=== PATIENT | female | born 1965 | race Caucasian/White ===

== ENCOUNTER → 2017-08-10 13:28 | Outpatient (CLI) | payer OTHER, SELFPAY | PROVIDERS: Family Provider Family Medicine; PCP Family Medicine; Visit Provider Family Medicine | DX: R10.9 Unspecified abdominal pain (principal) ==

== ENCOUNTER → 2017-08-25 15:45 | Outpatient (CLI) | payer OTHER, SELFPAY | PROVIDERS: Family Provider Family Medicine; PCP Family Medicine; Visit Provider Family Medicine | DX: R10.9 Unspecified abdominal pain (principal) | CPT/HCPCS: 87077; 87086; 87088; 87186 ==

== ENCOUNTER → 2018-04-16 13:21 | Outpatient (CLI) | payer OTHER, SELFPAY ==
[2018-04-16 15:23] LABS: Absolute Lymphocyte Count 2.59 X10^3/ul (0.83-4.51); Absolute Neutrophil Count 4.7 X10^3/uL (2.0-7.7); Basophil# 0.04 X10^3/uL; Basophil% 0.5 % (0-1); Eosinophil# 0.21 X10^3/uL; Eosinophils% 2.5 % (0-5); Hemoglobin 14.2 g/dl (12.0-15.0); Lymphocyte # 2.59 X10^3/ul (4.0); Lymphocyte % 31.3 % (19-41); Mean Corpuscular Hgb 29.2 pg (27.0-32.0); Mean Corpuscular Volume 88.5 fL (81-99); Mean Platelet Vol. 10.6 fl (6.2-12.0); Monocyte# 0.73 X10^3/uL; Monocyte% 8.8 % (0-10); Neutrophil # 4.68 X10^3/uL (2.7-7.7); Neutrophil % 56.7 % (47-70); Platelet Count 263 K/mm3 (150-450); RBC Distribution Width CV 12.6 % (11.6-14.6); RBC Distribution Width SD 40.3 fl (35.1-43.9); Red Blood Count 4.86 M/mm3 (4.2-5.4); White Blood Count 8.3 K/mm3 (4.4-11.0)
[2018-04-16 15:37] LABS: AST(SGOT) 13 U/L (15-37); Alanine Aminotransfer ALT/SGPT 20 U/L (13-56); Albumin, Serum 3.8 g/dL (3.2-5.0); Alkaline Phosphatase 66 U/L (45-117); Anion Gap 9 (5-15); BUN 15 mg/dL (7-18); BUN/Creat Ratio 18.6 RATIO (10-20); Chloride 106 mmol/L (98-107); Cholesterol 216 mg/dL (200); Creatinine, Serum 0.81 mg/dL (0.55-1.02); EST Glomerular Filtration Rate 79 mL/min (>60); Est Glom Filt Rate - Afr Amer 96 mL/min (>60); Globulin 3.9 g/dL (2.2-4.2); Glucose 86 mg/dL (74-106); High Density Lipoprotein 59 mg/dL; Potassium 3.9 mmol/L (3.5-5.1); Protein, Total 7.7 g/dL (6.4-8.2); Sodium Level 141 mmol/L (136-145); T4 Free Direct 1.05 ng/dL (0.76-1.46); Thyroid Stim Hormone (TSH) 2.17 uIU/mL (0.358-3.74); Triglycerides 103 mg/dL; Very Low Density Lipoprotein 21 mg/dL (5-40)
[2018-04-16 15:44] LABS: POSITIVE COUNT NO; POSITIVE DIFFERENTIAL NO; POSITIVE MORPHOLOGY NO
== END ==
PROVIDERS: Visit Provider Family Medicine
DX: Z00.00 Encounter for general adult medical examination without abnormal findings (principal); N95.1 Menopausal and female climacteric states; F41.9 Anxiety disorder, unspecified; R00.2 Palpitations
CPT/HCPCS: 36415; 80053; 80061; 84439; 84443; 85025

== ENCOUNTER → 2018-09-21 12:04 | Outpatient (CLI) | payer OTHER, SELFPAY ==
[2018-09-21 15:48] LABS: Absolute Lymphocyte Count 2.14 X10^3/ul (0.83-4.51); Absolute Neutrophil Count 4.3 X10^3/uL (2.0-7.7); Basophil# 0.04 X10^3/uL; Basophil% 0.6 % (0-1); Eosinophil# 0.12 X10^3/uL; Eosinophils% 1.7 % (0-5); Hematocrit 44.1 % (37-47); Hemoglobin 14.9 g/dl (12.0-15.0); Lymphocyte # 2.14 X10^3/ul (4.0); Lymphocyte % 30.1 % (19-41); Mean Corp Hgb Conc 33.8 g/gl (32-36); Mean Corpuscular Hgb 29.2 pg (27.0-32.0); Mean Corpuscular Volume 86.5 fL (81-99); Mean Platelet Vol. 10.5 fl (6.2-12.0); Neutrophil # 4.29 X10^3/uL (2.7-7.7); Neutrophil % 60.5 % (47-70); POSITIVE COUNT NO; POSITIVE DIFFERENTIAL NO; POSITIVE MORPHOLOGY NO; Platelet Count 243 K/mm3 (150-450); RBC Distribution Width CV 12.7 % (11.6-14.6); RBC Distribution Width SD 40.6 fl (35.1-43.9); White Blood Count 7.1 K/mm3 (4.4-11.0)
[2018-09-21 15:51] LABS: ALB/GLOB Ratio 1.1 RATIO (0.9-2.4); AST(SGOT) 16 U/L (15-37); Alanine Aminotransfer ALT/SGPT 25 U/L (13-56); Albumin, Serum 3.8 g/dL (3.2-5.0); Alkaline Phosphatase 72 U/L (45-117); Anion Gap 6 (5-15); BUN 14 mg/dL (7-18); BUN/Creat Ratio 14.8 RATIO (10-20); CRP < 2.90 mg/L (0.0-3.0); Calcium,Total 8.7 mg/dL (8.5-10.1); Chloride 108 mmol/L (98-107); Creatinine, Serum 0.94 mg/dL (0.55-1.02); EST Glomerular Filtration Rate 66 mL/min (>60); Est Glom Filt Rate - Afr Amer 80 mL/min (>60); Globulin 3.6 g/dL (2.2-4.2); Glucose 94 mg/dL (74-106); Potassium 3.9 mmol/L (3.5-5.1); Protein, Total 7.4 g/dL (6.4-8.2); Sodium Level 141 mmol/L (136-145)
== END ==
PROVIDERS: Family Provider Family Medicine; PCP Family Medicine; Visit Provider Family Medicine
DX: R10.9 Unspecified abdominal pain (principal)
CPT/HCPCS: 36415; 80053; 85025; 86140

== ENCOUNTER → 2018-10-05 13:18 | Outpatient (CLI) | payer OTHER, SELFPAY | PROVIDERS: Family Provider Family Medicine; PCP Family Medicine; Visit Provider Family Medicine | DX: R10.9 Unspecified abdominal pain (principal) | CPT/HCPCS: 87086; 87088 ==

== ENCOUNTER → 2019-03-28 16:15 | Outpatient (CLI) | payer OTHER, SELFPAY ==
[2019-03-28 17:26] LABS: Erythrocyte Sedimentation Rate 9 mm/hr (0-30)
[2019-03-28 18:36] LABS: AST(SGOT) 11 U/L (15-37); Alanine Aminotransfer ALT/SGPT 19 U/L (13-56); Albumin, Serum 4.1 g/dL (3.2-5.0); Alkaline Phosphatase 81 U/L (45-117); Anion Gap 4 (5-15); BUN 12 mg/dL (7-18); BUN/Creat Ratio 13.3 RATIO (10-20); CRP < 2.90 mg/L (0.0-3.0); Calcium,Total 9.4 mg/dL (8.5-10.1); Chloride 107 mmol/L (98-107); EST Glomerular Filtration Rate 70 mL/min (>60); Est Glom Filt Rate - Afr Amer 84 mL/min (>60); Glucose 66 mg/dL (74-106); Magnesium 2.2 mg/dL (1.6-2.6); Potassium 3.6 mmol/L (3.5-5.1); Protein, Total 8.1 g/dL (6.4-8.2); Rheumatoid Factor < 10.0 IU/mL (<15); Sodium Level 140 mmol/L (136-145); Thyroid Stim Hormone (TSH) 2.76 uIU/mL (0.358-3.74)
--- OUTSIDE RECORDS SUMMARY | 2019-03-29 13:23 | XMS RPT_ITS | CCD ---
:1965 External Reference #:[id number] Author Organization [facility] Care Team Providers Name Role Phone Husam PARKINSON Unavailable Unavailable PHYSICIAN Unavailable Unavailable Husam PARKINSON Unavailable Unavailable MIRTA Unavailable Unavailable Husam DANIELS Admitting Unavailable Husam DANIELS Attending Unavailable Husam DANIELS Primary Care Unavailable Allergies Reported Allergen Reaction(s) Severity Date of Onset Location Codeine Moderate (Severity Margarito Pome leandro Modifier) [facility] ([facility] Penicillins Moderate (Severity Margarito [place] Modifier) [facility] ([facility]) [facility] Shellfish Moderate (Severity Margarito Pome leandro Translations: [ [facility] (Qual[facility] Value) Repository Results Result Name Value Range Unit Interpretation Flag Date Location history and physical on 2017-07-24 History and Physical Normal 8 [facility] ([id number]) discharge summary o n 2017-07-19 Discharge Summary Normal 07-19-2017 A [facility] ([id number]) inpatient patient summary on 2017-07-18 Inpatient Patient Summary Normal 06-27 [facility]) ([id number]) depart summary on Depart Summary Normal 07-18-2017 [facility]) ([id number]) cbc on 2017-07-18 Erythrocyte distribution 13.0 11.5-15.5 % Normal 07-18 [facility] Auto Ratio (RBC) [facility] ([id number]) Comment: Performed By: #### CBC, ADIF F, ANEU, BMP, GFR ####[facility] [place] [address] Erythrocytes (RBC) 4.75 4.10-5.30 10 6/mcL Normal 07-18-2017 [facility]) ([id number]) Comment: Performed By: #### CBC, ADIF F, ANEU, BMP, GFR ####[place] [address] Hematocrit (HCT) 40.9 34.0-46.0 % Normal 07-18-2017 [facility] ([place]) ([id number]) Comment: Performed By: #### CBC, ADIF F, ANEU, BMP, GFR ####[place] [address] Hemoglobin mass conc 14.4 12.0-16.0 G/dL Normal 8 [facility] (d) [facility] ([place]) ([id number]) Comment: Performed By: #### CBC, ADIF F, ANEU, BMP, GFR ####[place] [address] MCH 30.4 27.0-33.0 pg Normal 07-18-2017 [facility] ([place]) ([id number]) Comment: Performed By: #### CBC, ADIF F, ANEU, BMP, GFR ####[place] [address] MCHC mass conc (RBC) 35.3 32.0-36.0 G/dL Normal 8 [facility] ([place]) (0000 0) Comment: Performed By: #### CBC, ADIF F, ANEU, BMP, GFR ####[place] [address] MCV 86.1 80.0-99.0 fL Normal 07-18-2017 [facility] ([place]) ([id number]) Comment: Performed By: #### CBC, ADIF F, ANEU, BMP, GFR ####[place] [address] Platelet mean volume 8.6 6.6-10.5 fL Normal 8 [facility] ([facility]) ([place]) (0000 0) Comment: Performed By: #### CBC, ADIF F, ANEU, BMP, GFR ####[place] [address] Platelets 229 150-450 10 3/mcL Normal 07-18-2017 [facility]) ([id number]) Comment: Performed By: #### CBC, ADIF F, ANEU, BMP, GFR ####[place] [address] WBC (Leukocytes) 6.90 4.50-10.80 10 3/mcL Normal 07-18-2017 A On license of [facility] ([place]) (0000 0) Comment: Performed By: #### CBC, ADIF F, ANEU, BMP, GFR ####[place] [address] cardiac catheterization - cv on 2017-07-18 Cardiac Catheterization - CV Normal 0 07-18-2017 [facility]) ([id number]) bmp on 2017-07-18 BUN/Creatinine Ratio 16.5 10.0-22.0 ratio Normal 8 [facility]) (0000 0) Comment: Performed By: #### CBC, ADIF F, ANEU, BMP, GFR ####[place] [address] Creatinine 0.79 0.50-1.20 mg/dL Normal 07-18-2017 [facility] ([place]) ([id number]) Comment: Performed By: #### CBC, ADIF F, ANEU, BMP, GFR ####[place] [address] Calcium 8.8 8.4-10.1 mg/dL Normal 07-18-2017 [facility]) ([id number]) Comment: Performed By: #### CBC, ADIF F, ANEU, BMP, GFR ####[place] [address] Chloride 108 98-110 mEq/L Normal 07-18-2017 [facility]) ([id number]) Comment: Performed By: #### CBC, ADIF F, ANEU, BMP, GFR ####[place] [address] CO2 26 22-32 mEq/L Normal 07-18-2017 [facility]) ([id number]) Comment: Performed By: #### CBC, ADIF F, ANEU, BMP, GFR ####[place] [address] Electrolyte Balance 8.0 4.0-15.0 mEq/L Normal 07-18-2017 [facility] ([place]) (0000 0) Comment: Performed By: #### CBC, ADIF F, ANEU, BMP, GFR ####[place] [address] Glucose mass conc 86 70-110 mg/dL Normal 07-18-2017 A On license of [facility] ([place]) ([id number]) Comment: Performed By: #### CBC, ADIF F, ANEU, BMP, GFR ####[place] [address] Potassium molar conc 3.7 3.5-5.0 mEq/L Normal 8 [facility] ([place]) (0000 0) Comment: Performed By: #### CBC, ADIF F, ANEU, BMP, GFR ####[place] [address] Sodium 142 136-145 mEq/L Normal 07-18-2017 [facility] ([place]) ([id number]) Comment: Performed By: #### CBC, ADIF F, ANEU, BMP, GFR ####[place] [address] Urea nitrogen 13.0 8.0-22.0 mg/dL Normal 07-18-2017 [facility] ([place]) ([id number]) Comment: Performed By: #### CBC, ADIF F, ANEU, BMP, GFR ####[place] [address] .neuabs on Neutrophils 4.00 2.25-8.10 10 3/mcL Normal 07-18-2017 [facility] ([place]) ([id number]) Comment: Performed By: #### CBC, ADIF F, ANEU, BMP, GFR ####[place] [address] .gfr on 2017-07-18 eGFR (non-black) >60 mL/min/{1.73_m2} Normal 2017 [facility] ([place]) (0000 0) Comment: Result Comment: GFR Populati on mean for , Non- Americans Ages 20-29 = 116 m L/min/1.73 sq.m. Ages 30-39 = 107 mL/min/1.73 sq.m. Ages 40-49 = 99 mL/min /1.73 sq.m. Ages 50-59 = 93 mL/min/1.73 sq.m. Ages 60-69 = 85 mL/min/1.73 sq.m. Ages 70+ = 75 mL/min/1.73 sq.m.Chronic Kidney Disease: Less than 60 mL/min/1.73 square metersEnd Stage Renal Disease: Less than 15 mL/min /1.73 square meters Performed By: #### CBC, ADIF F, ANEU, BMP, GFR ####[address] [address] eGFR (non-black) >60 mL/min/{1.73_m2} Normal 2017 [facility] ([place]) (0000 0) Comment: Result Comment: GFR Populati on mean for , Non- Americans Ages 20-29 = 116 m L/min/1.73 sq.m. Ages 30-39 = 107 mL/min/1.73 sq.m. Ages 40-49 = 99 mL/min /1.73 sq.m. Ages 50-59 = 93 mL/min/1.73 sq.m. Ages 60-69 = 85 mL/min/1.73 sq.m. Ages 70+ = 75 mL/min/1.73 sq.m.Chronic Kidney Disease: Less than 60 mL/min/1.73 square metersEnd Stage Renal Disease: Less than 15 mL/min /1.73 square meters Performed By: #### CBC, ADIF F, ANEU, BMP, GFR ####[address] [address] .auto diff on 07-18 Basophils Auto #/vol 0.10 0.00-0.27 10 3/mcL Normal 8 [facility] ([facility]) [facility] ([place]) ([id number]) Comment: Performed By: #### CBC, ADIF F, ANEU, BMP, GFR ####[address] [address] Basophils/100 WBC Auto (Bld) 0.8 0.0-2.5 % Normal 0 07-18-2017 [facility] ([place]) (0000 0) Comment: Performed By: #### CBC, ADIF F, ANEU, BMP, GFR ####[address] [address] Eosinophils 0.10 0.00-0.65 10 3/mcL Normal 07-18-2017 [facility] ([place]) ([id number]) Comment: Performed By: #### CBC, ADIF F, ANEU, BMP, GFR ####[address] [address] Eosinophils/100 leukocytes 1.7 0.0-6.0 % Normal [facility] ([place]) (0000 0) Comment: Performed By: #### CBC, ADIF F, ANEU, BMP, GFR ####[address] [address] Lymphocytes 2.00 0.90-4.32 10 3/mcL Normal 07-18-2017 [facility] ([place]) ([id number]) Comment: Performed By: #### CBC, ADIF F, ANEU, BMP, GFR ####[address] [address] Lymphocytes/100 leukocytes 28.9 20.0-40.0 % Normal [facility] ([place]) (92495) Comment: Performed By: #### CBC, ADIF F, ANEU, BMP, GFR ####[address] [address] Monocytes 0.80 0.09-1.40 10 3/mcL Normal 07-18-2017 [facility] ([place]) ([id number]) Comment: Performed By: #### CBC, ADIF F, ANEU, BMP, GFR ####[address] [address] Monocytes/100 leukocytes 11.0 2.0-13.0 % Normal 07-18 [facility] ([place]) (0000 0) Comment: Performed By: #### CBC, ADIF F, ANEU, BMP, GFR ####[place] [address] [place] [address] Neutrophils/100 WBC Auto 57.6 50.0-75.0 % Normal 07-18 [facility] ([facility] ([place]) ([id number]) Comment: Performed By: #### CBC, ADIF F, ANEU, BMP, GFR ####[place] [address] [place] [address] lipid on 2017-04-13 HDL Cholesterol 70 40-59 mg/dL High 04-13-2017 [facility] ([place]) ([id number]) Comment: Order Comment: killbuck ernestina ngs Result Comment: HDL Referenc e Interval:Less than 40 Low - high risk60 or above Optimal/lowers risk Performed By: #### CMP, GFR, LIPID ####[address] [address] LDL Cholesterol 139 0-129 mg/dL High 04-13-2017 [facility] ([place]) ([id number]) Comment: Order Comment: killbuck ernestina ngs Result Comment: LDL is a mark culated result and requires a 12-hr fast.LDL Reference Interval:Less than 100 [id number] Near or above [id number] Borderline high [id number] High sgqs045 and above Very high risk Performed By: #### CMP, GFR, LIPID ####[address] [address] Triglyceride 100 3-149 mg/dL Normal 04-13-2017 [facility] ([place]) (65135) Comment: Order Comment: killbuck ernestina ngs Result Comment: Triglyceride Reference Interval:Less than 150 [id number] Borderline high [id number] High [id number] or higher Very high risk Performed By: #### CMP, GFR, LIPID ####[place] [address] [place] [address] Cholesterol 229 50-199 mg/dL High 04-13-2017 [facility] ([place]) (53905) Comment: Order Comment: killbuck ernestina ngs Result Comment: Cholesterol Reference Interval:Less than 200 [id number] Borderline high ubik082 and above High risk Performed By: #### CMP, GFR, LIPID ####[address] [address] cmp on 2017-04-13 Alanine aminotransferase (ALT) 25 10-49 U/L Normal 04-13-2017 [facility] ([place]) ([id number]) Comment: Order Comment: killbuck ernestina ngs Performed By: #### CMP, GFR, LIPID ####[place] [address] Albumin/Globulin Ratio 1.2 0.9-1.6 ratio Normal 017 [facility] ([place]) (0000 0) Comment: Order Comment: killbuck ernestina ngs Performed By: #### CMP, GFR, LIPID ####[place] [address] Alk Phos 56 38-126 U/L Normal 04-13-2017 [facility] ([place]) (24608) Comment: Order Comment: killbuck ernestina ngs Performed By: #### CMP, GFR, LIPID ####[place] [address] Bili Total 0.8 0.2-1.2 mg/dL Normal 04-13-2017 [facility] ([place]) (50142) Comment: Order Comment: killbuck ernestina ngs Performed By: #### CMP, GFR, LIPID ####[place] [address] BUN/Creatinine Ratio 12.2 10.0-22.0 ratio Normal 7 [facility] ([place]) (0000 0) Comment: Order Comment: killbuck ernestina ngs Performed By: #### CMP, GFR, LIPID ####[place] [address] Creatinine 0.82 0.50-1.20 mg/dL Normal 04-13-2017 [facility] ([place]) ([id number]) Comment: Order Comment: killbuck ernestina ngs Performed By: #### CMP, GFR, LIPID ####[place] [address] Globulin 3.4 1.5-3.8 G/dL Normal 04-13-2017 [facility] ([place]) ([id number]) Comment: Order Comment: killbuck ernestina ngs Performed By: #### CMP, GFR, LIPID ####[place] [address] Protein 7.5 6.0-8.5 G/dL Normal 04-13-2017 [facility] ([place]) (00375) Comment: Order Comment: killbuck ernestina ngs Performed By: #### CMP, GFR, LIPID ####[place] [address] Albumin 4.1 3.2-4.8 G/dL Normal 04-13-2017 [facility] ([place]) ([id number]) Comment: Order Comment: killbuck ernestina ngs Performed By: #### CMP, GFR, LIPID ####[place] [address] Aspartate aminotransferase 12 8-34 U/L Normal [facility] ([facility]) [facility] ([place]) (62147) Comment: Order Comment: killbuck ernestina ngs Performed By: #### CMP, GFR, LIPID ####[place] [address] Calcium 9.0 8.4-10.1 mg/dL Normal 04-13-2017 [facility] ([place]) (30826) Comment: Order Comment: killbuck ernestina ngs Performed By: #### CMP, GFR, LIPID ####[place] [address] Chloride 106 98-110 mEq/L Normal 04-13-2017 [facility] ([place]) (86689) Comment: Order Comment: killbuck ernestina ngs Performed By: #### CMP, GFR, LIPID ####[place] [address] CO2 25 22-32 mEq/L Normal 04-13-2017 [facility] ([place]) (69363) Comment: Order Comment: killbuck ernestina ngs Performed By: #### CMP, GFR, LIPID ####[place] [address] Electrolyte Balance 9.0 4.0-15.0 mEq/L Normal 04-13-2017 [facility] ([place]) (0000 0) Comment: Order Comment: killbuck ernestina ngs Performed By: #### CMP, GFR, LIPID ####[place] [address] [place] [address] Glucose mass conc 90 70-110 mg/dL Normal 04-13-2017 A On license of [facility] ([place]) (73214) Comment: Order Comment: killbuck ernestina ngs Performed By: #### CMP, GFR, LIPID ####[address] [address] Potassium molar conc 4.3 3.5-5.0 mEq/L Normal 7 [facility] ([place]) (0000 0) Comment: Order Comment: killbuck ernestina ngs Performed By: #### CMP, GFR, LIPID ####[address] [address] Sodium 140 136-145 mEq/L Normal 04-13-2017 [facility] ([place]) (75976) Comment: Order Comment: killbuck ernestina ngs Performed By: #### CMP, GFR, LIPID ####[address] [address] Urea nitrogen 10.0 8.0-22.0 mg/dL Normal 04-13-2017 [facility] ([place]) (53074) Comment: Order Comment: killbuck ernestina ngs Performed By: #### CMP, GFR, LIPID ####[address] [address] .gfr on 2017-04-13 eGFR (non-black) >60 mL/min/{1.73_m2} Normal 2016 [facility] ([place]) (0000 0) Comment: Result Comment: GFR Populati on mean for , Non- Americans Ages 20-29 = 116 m L/min/1.73 sq.m. Ages 30-39 = 107 mL/min/1.73 sq.m. Ages 40-49 = 99 mL/min /1.73 sq.m. Ages 50-59 = 93 mL/min/1.73 sq.m. Ages 60-69 = 85 mL/min/1.73 sq.m. Ages 70+ = 75 mL/min/1.73 sq.m.Chronic Kidney Disease: Less than 60 mL/min/1.73 square metersEnd Stage Renal Disease: Less than 15 mL/min /1.73 square meters Performed By: #### CMP, GFR, LIPID ####[facility] [place] [address] Encounters Date Type Reason Provider Location 07-18-2017 - Ambulatory TITI PARKINSON NOT Facility: A 07-18-2017 RECORDED PHYSICIAN TITI KIRBY 03-27-2019 Patient [facility] [place] ([id number]) Payers Payer Name Policy Number Location [place] [address] [id number] [facility] ([id number]) [id number] [facility] ([id number]) Summary Purpose Family History No Family History Records FoundNo Family History Records Found Advance Directives No Advanced Directives Records FoundNo Advanced Directives Records Found Additional Source Comments FOR RECORDS PERTAINING TO PATIENTS WHO ARE OR HAVE BEEN ENROLLED IN A CHEMICAL DEPENDENCY/SUBSTANCE ABUSE PROGRAM, SOME INFORMATION MAY BE OMITTED. This clinical summary was aggregated from multiple sources. Caution should be exercised in using it in the provision of clinical care. This summary normalizes information from multiple sources, and as a consequence, information in this document may materially changethe coding, format and clinical context of patient data. In addition, data may be omittedin some cases. CLINICAL DECISIONS SHOULD BE BASED ON THE PRIMARY CLINICAL RECORDS. [facility] provides no warranty or guarantee of the accuracy or completeness of information in this document. UNRECOGNIZED CONTENT PROVIDED BELOW FOR UNRECOGNIZED SECTION INFORMATION SOURCE DATE CREATED AUTHOR AUTHOR'S ORGANIZATIO N 12/18/2017 [facility] DATE CREATED AUTHOR AUTHOR'S ORGANIZATIO N 03/28/2019 [facility]
[2019-04-01 14:07] LABS: ANTINUCLEAR ANTIBODIES DIRECT Positive (Negative); Anti-Centromere B Ab <0.2 AI (0.0-0.9); Anti-Chromatin 0.4 AI (0.0-0.9); Anti-Jo <0.2 AI (0.0-0.9); Anti-Scleroderma-70 AB <0.2 AI (0.0-0.9); RNP Ab 0.2 AI (0.0-0.9); SJOGREN'S Anti-SS-A test < 0.2 AI (0.0-0.9); SJOGREN'S Anti-SS-B test < 0.2 AI (0.0-0.9); Smith Ab 0.2 AI (0.0-0.9)
[2019-04-02 03:06] LABS: Lyme IgG P18 Ab Present (.); Lyme IgG P23 Ab Present (.); Lyme IgG P28 Ab Absent (.); Lyme IgG P30 Ab Absent (.); Lyme IgG P39 Ab Absent (.); Lyme IgG P41 Ab Present (.); Lyme IgG P45 Ab Absent (.); Lyme IgG P58 Ab Absent (.); Lyme IgG P66 Ab Absent (.); Lyme IgG P93 Ab Present (.); Lyme IgM P23 Ab Absent (.); Lyme IgM P39 Ab Absent (.); Lyme IgM P41 Ab Absent (.)
[2019-04-02 13:07] LABS: CCP IgG Antibodies 8 units (0-19); Lyme IgG WB Interpretation Negative (.); Lyme IgM WB Interpretation Negative (.)
[2019-04-02 14:29] LABS: Anti-dsDNA Ab 10 IU/mL (0-9)
== END ==
PROVIDERS: Family Provider Family Medicine; PCP Family Medicine; Visit Provider Family Medicine
DX: M25.50 Pain in unspecified joint (principal); R25.2 Cramp and spasm; R25.3 Fasciculation; R53.83 Other fatigue
CPT/HCPCS: 36415; 80053; 83735; 84443; 85652; 86038; 86140; 86200; 86225; 86235; 86431; 86617

== ENCOUNTER 2019-12-01 10:50 | Emergency (ER) | payer OTHER, SELFPAY ==
[2019-12-01 10:52] VITALS: BP 144/82; PULSE 76; RESP 17; TEMP 36.9; O2SAT 100; BMI 23.3
--- NOTE | 2019-12-01 11:14 | CT_ITS ---
ACR Level 3 findings have been noted. An addendum which confirms receipt of the report will follow. STUDY: CT ABDOMEN AND PELVIS WITHOUT CONTRAST REASON FOR EXAM: Female, 53 years old. ABD PAIN SINCE MONDAY, ELEV WBC, DIFFICULTY WITH BM THIS AM, IS HAVING A RA FLARE UP, HYSTER, SRI RADIATION DOSAGE (If Supplied By Facility): CTDIvol = ( 9.87 ) mGy, DLP = ( 428.69 ) mGycm TECHNIQUE: Transaxial images were obtained from the dome of the diaphragm to the symphysis pubis without oral contrast, and without intravenous contrast. Sagittal and coronal images were reconstructed. Individualized dose optimization techniques were used for this CT. COMPARISON: None. FINDINGS: The visualized lung bases are unremarkable. The visualized portions of the heart are within normal limits. There is hepatomegaly with diffuse hepatic enlargement. There are multiple, greater than 5, low density enhancing masses. There is non-visualization of the gallbladder, secondary to prior cholecystectomy. Normal spleen. Normal pancreas. Normal bilateral adrenal glands. Normal right kidney. There is 0.8 cm cyst of the left kidney. Normal visualized stomach. Normal small intestine. There is diverticulosis, with thickening of the sigmoid colon wall, and pericolonic inflammation changes consistent with acute diverticulitis. There is non-visualization of the appendix. Normal abdominal aorta. Normal inferior vena cava. Normal retroperitoneum. Normal urinary bladder. There is absence of the uterus consistent with a prior hysterectomy. There is mild free fluid in the pelvis. Normal abdominal wall. There are mild degenerative changes of the spine CT/Abdomen/Pelvis W IV Cont ONLY IMPRESSION: Sigmoid diverticulitis. No obstruction. Mild free fluid in the pelvis. Hepatomegaly. Multiple nonspecific masses in the liver. Ultrasound and/or MRI recommended for further characterization. Electronically Signed: Harris Luque MD at 12:50 EDT , Service support ,
[2019-12-01] MEDS: 0.9% Normal Saline 1,000 ML 1000 ML IV (11:25)
[2019-12-01 11:36] LABS: Absolute Lymphocyte Count 1.08 X10^3/uL (0.83-4.51); Basophil# 0.06 X10^3/uL; Basophil% 0.5 % (0-1); Eosinophils% 0.8 % (0-5); Hematocrit 39.6 % (37-47); Lymphocyte # 1.08 X10^3/ul (4.0); Lymphocyte % 8.3 % (19-41); Mean Corp Hgb Conc 32.8 g/dL (32-36); Mean Corpuscular Hgb 29.4 pg (27.0-32.0); Mean Corpuscular Volume 89.6 fL (81-99); Mean Platelet Vol. 9.8 fl (6.2-12.0); Monocyte# 0.75 X10^3/uL; Monocyte% 5.7 % (0-10); NRBC Flagged by Analyzer 0 % (0-5); Neutrophil # 11.01 X10^3/uL (2.7-7.7); Neutrophil % 84.3 % (47-70); Platelet Count 263 K/mm3 (150-450); RBC Distribution Width CV 12.3 % (11.6-14.6); Red Blood Count 4.42 M/mm3 (4.2-5.4); White Blood Count 13.1 K/mm3 (4.4-11.0)
[2019-12-01 11:46] LABS: Anion Gap 4 (5-15); BUN 14 mg/dL (7-18); BUN/Creat Ratio 18.7 RATIO (10-20); Calcium,Total 9.3 mg/dL (8.5-10.1); Chloride 108 mmol/L (98-107); Creatinine, Serum 0.75 mg/dL (0.55-1.02); EST Glomerular Filtration Rate 86 mL/min (>60); Est Glom Filt Rate - Afr Amer 104 mL/min (>60); Estimated Creatinine Clearance 68.61 ml/min; Glucose 97 mg/dL (74-106); Potassium 3.8 mmol/L (3.5-5.1); Sodium Level 140 mmol/L (136-145)
[2019-12-01] MEDS: DiphenhydrAMINE 50 MG/ML Syringe 25 MG IV (11:52)
--- NOTE | 2019-12-01 13:00 | ED.DCSUM_ITS ---
History of Present Illness - Abdominal Pain/Flank Pain Onset: Yesterday Context: Gradual Onset Timing: Continuous Quality: Dull Location: LLQ Current Severity: Moderate Maximum Severity: Severe Worsened by: Food, Movement Relieved by: Remaining Still - Nausea/Vomiting/Emesis GI Symptom: Negative for: Nausea, Vomiting - Diarrhea/Melena/Hematochezia GI Symptom: Negative for: Diarrhea, Melena Associated Symptoms: Negative for: Dysuria, Frequency, Hematuria, Urgency Prior similar symptoms: Yes Recent Illness/Hospitalization: No <Sameer Santoyo - Last Filed: 12/01/19 13:00> <Nir Cardenas - Last Filed: 12/01/19 16:06> Chief Complaint: Abd Pain Past Medical History Prior records reviewed: Yes Past Medical History: - - Rheumatoid arthritis Surgical History: cholecystectomy, hysterectomy Smoking Status: Former smoker <Sameer Santoyo - Last Filed: 12/01/19 13:00> <Nir Cardenas - Last Filed: 12/01/19 16:06> - Allergies and Home Meds Allergies/Adverse Reactions: Allergies shellfish derived Allergy (Verified 12/01/19 10:52) Hives codeine Adverse Reaction (Verified 12/01/19 10:52) Other INCREASED HR Penicillins Adverse Reaction (Verified 12/01/19 10:52) Nausea/Vom/Diarrhea Primary Care Physician: Brissa Davies MD [Primary Care Provider] - Review of Systems All systems negative except as indicated General: Denies: Chills, Fever, Sweats Eyes: Denies: Visual changes - bilaterally, Diplopia ENT: Denies: Rhinorrhea, Sore throat Cardiovascular: Denies: Chest pain, Palpitations Respiratory: Denies: Dyspnea, Cough, Dyspnea on exertion Gastrointestinal: Reports: Abdominal pain. Denies: Nausea, Vomiting, Diarrhea, Melena, Hematochezia Genitourinary: Denies: Dysuria, Hematuria, Frequency Musculoskeletal: Denies: Back pain, Extremity Pain Skin: Denies: Rash, Wounds Neurological: Denies: Headache, Weakness, Numbness <Sameer Santoyo - Last Filed: 12/01/19 13:00> Physical Exam Vital Signs/Narrative: Vital Signs Temp Pulse Resp BP Pulse Ox 12/01/19 10:52 98.5 F 76 17 144/82 H 100 Inital Vital Signs reviewed: Yes General: Well nourished, Well developed, No Acute Distress Head: Normocephalic, Atraumatic Eyes: Perrl, EOMI ENT: Moist mucous membranes, No rhinorrhea Neck: Supple, Nontender Cardiovascular: Regular rate, Regular rhythm, No murmurs Respiratory: No distress, CTA bilaterally, Chest nontender Abdomen: Soft, Nondistended, Normal bowel sounds, Tender Back: Nontender, Normal Inspection. Negative for: CVA tenderness Extremities: Nontender, No edema Skin: Normal color, No rash Neurological: Alert, Oriented x3, Cranial nerves II-XII grossly intact, Normal Strength, Normal Sensation Psychological: Normal affect, Normal Mood <Sameer Santoyo - Last Filed: 12/01/19 13:00> Vital Signs/Narrative: Vital Signs Pulse Resp BP Pulse Ox 12/01/19 13:22 76 16 130/85 H 99 <Nir Cardenas - Last Filed: 12/01/19 16:06> Diagnostic/Tx/Re-eval CT: Abdomen and Pelvis Laboratory Tests 12/01/19 12/01/19 Range/Units 11:25 11:25 WBC 13.1 H (4.4-11.0) K/mm3 RBC 4.42 (4.2-5.4) M/mm3 Hgb 13.0 (12.0-15.0) g/dL Hct 39.6 (37-47) % MCV 89.6 (81-99) fL MCH 29.4 (27.0-32.0) pg MCHC 32.8 (32-36) g/dL RDW Std Deviation 40.0 (35.1-43.9) fl RDW Coeff of Veronica 12.3 (11.6-14.6) % Plt Count 263 (150-450) K/mm3 MPV 9.8 (6.2-12.0) fl Immature Gran % (Auto) 0.400 (0.0-0.9) % Neut % (Auto) 84.3 H (47-70) % Lymph % (Auto) 8.3 L (19-41) % Metcalfe % (Auto) 5.7 (0-10) % Eos % (Auto) 0.8 (0-5) % Baso % (Auto) 0.5 (0-1) % Absolute Neuts (auto) 11.0 H (2.0-7.7) X10^3/uL Absolute Lymphs (auto) 1.08 (0.83-4.51) X10^3/uL Nucleated RBC % 0 (0-5) % Sodium 140 (136-145) mmol/L Potassium 3.8 (3.5-5.1) mmol/L Chloride 108 H (98-107) mmol/L Carbon Dioxide 28.0 (21.0-32.0) mmol/L Anion Gap 4 L (5-15) BUN 14 (7-18) mg/dL Creatinine 0.75 (0.55-1.02) mg/dL Estim Creat Clear Calc 68.61 ml/min Est GFR (MDRD) Af Amer 104 (>60) mL/min Est GFR (MDRD) Non-Af 86 (>60) mL/min BUN/Creatinine Ratio 18.7 (10-20) RATIO Glucose 97 (74-106) mg/dL Calcium 9.3 (8.5-10.1) mg/dL - Medical Decision Making Patient was treated with IV fluids but she declined analgesia or antiemetics. Laboratory work-up including CBC CMP and lipase was remarkable only for a white blood cell count of 13. The rest of her labs are unremarkable. She had a n egative urinalysis at the urgent care just prior to arrival therefore we did not repeat this test. CT scan abdomen and pelvis with IV contrast demonstrated multiple greater than 5 low-density enhancing masses in the liver with hepatomegaly. It also demonstrated acute sigmoid diverticulitis. There is no sign of abscess or perforation. Repeat exam abdomen is soft and nontender the patient is not having pain she does not require analgesia and is tolerating by mouth. I discussed the findings on the CAT scan with the patient the radiologist did contact me and recommended further work-up with ultrasound and/or MRI for better characterization of these liver masses. We wanted to admit the patient to have this work-up done but at this time she is refusing admission. She states her mother has a history of cyst on her liver and patient states that she is not concerned about having any acute work-up for this and she actually has an appointment in 2 days with her doctor where she can arrange for more testing as an outpatient. Patient will be started on Cipro and Flagyl. First doses were given in the emergency department. She will be discharged home with follow-up on Monday and was advi sed that if she develops worsening symptoms which we discussed to return to the emergency department. <Smaeer Santoyo - Last Filed: 12/01/19 13:00> - Medical Decision Making Patient was seen with me. I did a [id number] examination with the patient. Patient presents with left lower abdominal pain that is been getting worse over the past few days. Patient states the pain is worse with certain movements. Patient states her pain is worse with having a bowel movement and with urination. Patient denies any fevers or chills. Vital signs are stable. Patient is afebrile. Patient is in no acute distress. Oral mucosa is pink and moist. Neck is supple. Trachea is midline. There is no JVD. Abdomen is soft. Bowel sounds are normal. There is left lower quadrant tenderness. There is no rebound or guarding noted. Heart was regular rate and rhythm. Lungs are clear and equal bilaterally. Cranial nerves II through XII are intact. There are no focal motor or sensory deficits. CBC showed a mild leukocytosis of 13. Comprehensive metabolic profile and lipase were within normal limits. CT scan of the abdomen and pelvis was obtaine d. There is sigmoid diverticulitis. There is no abscess or perforation. There are also possible cystic lesions on her liver. Radiologist recommended ultrasound and/or MRI for further evaluation. Patient does not want this done at this time. Patient states she will follow-up with her primary care physician for this. Patient was given her first dose of Cipro and Flagyl here. Patient was given prescriptions for Cipro and Flagyl. Patient was instructed to follow- up with her primary care physician in 5 to 7 days. Patient understood and was agreeable with the plan. All questions were answered. <Nir Cardenas - Last Filed: 12/01/19 16:06> ED Disposition <Sameer Santoyo - Last Filed: 12/01/19 13:00> <Nir Cardenas - Last Filed: 12/01/19 16:06> - Plan for ED Patient: Disposition: Home or Assisted Living Diagnosis: Sigmoid diverticulitis, Liver masses, Rheumatoid arthritis Instructions: ED Diverticulitis, ED Tumor [facility] Prescriptions: Ciprofloxacin [Cipro] 500 mg PO BID #20 tab Prescription Printed metroNIDAZOLE [Flagyl] 500 mg PO Q8H #21 tab Prescription Printed Referrals: Brissa Davies MD [Primary Care Provider] -
[2019-12-01 13:09] LABS: Lipase 100 U/L (73-393)
[2019-12-01] MEDS: metroNIDAZOLE 500 MG Tablet PO (13:20)
[2019-12-01] MEDS: Ciprofloxacin 500 MG Tablet PO (13:20)
[2019-12-01 13:22] VITALS: BP 130/85; PULSE 76; RESP 16; O2SAT 99
[2019-12-01 13:23] LABS: AST(SGOT) 10 U/L (15-37); Alanine Aminotransfer ALT/SGPT 18 U/L (13-56); Albumin, Serum 3.4 g/dL (3.2-5.0); Alkaline Phosphatase 72 U/L (45-117); Globulin 3.8 g/dL (2.2-4.2); Protein, Total 7.2 g/dL (6.4-8.2)
== END 2019-12-01 13:29 | disposition home or self-care (01) ==
PROVIDERS: Emergency Provider Physician Assistant Medical; PCP Family Medicine
DX: K57.32 Diverticulitis of large intestine without perforation or abscess without bleeding (principal); M06.9 Rheumatoid arthritis, unspecified; R16.0 Hepatomegaly, not elsewhere classified; Z79.899 Other long term (current) drug therapy; Z87.891 Personal history of nicotine dependence
CPT/HCPCS: 74177; 80048; 80076; 83690; 85025; 96361; 96374; 99284; J7030; Q9967

== ENCOUNTER → 2019-12-13 11:32 | Outpatient (CLI) | payer OTHER, SELFPAY ==
--- NOTE | 2019-12-13 11:40 | US_ITS ---
STUDY: ABDOMINAL ULTRASOUND - RIGHT UPPER QUADRANT REASON FOR VISIT: Female, 53 years old LIVER LESIONS TECHNIQUE: Ultrasound evaluation of the right upper quadrant was performed with real-time and static wheatley-scale imaging. TECHNICAL QUALITY: Adequate. COMPARISON: None. FINDINGS: Liver: The liver measures 15.2 cm. There is normal echogenicity of the liver. The bile ducts are within normal limits. There is hepatic color flow. The direction of portal flow is hepatopetal. There is no demonstrated mass lesion. Gallbladder: The patient is status post cholecystectomy. Common Bile Duct (C.B.D.): The common bile duct measures 3.0 mm. Pancreas: Normal size of the head, body and tail of the pancreas. There is normal echogenicity of the pancreas. There is no demonstrated pancreatic mass or cyst. Right Kidney: Normal size of the right kidney. The right kidney measures 10.2 cm x 4.2 cm x 3.4 cm. Normal renal cortex. The right cortex measures 1.8 cm. There is no demonstrated renal mass or cyst. There is no right hydronephrosis. US/Liver IMPRESSION: Normal right upper quadrant ultrasound examination. Electronically Signed: Esteban Gong, at 12:49 EDT , Service support ,
== END ==
PROVIDERS: PCP Family Medicine; Referring Provider Family Medicine; Visit Provider Family Medicine
DX: K76.9 Liver disease, unspecified (principal)
CPT/HCPCS: 76705

== ENCOUNTER → 2019-12-26 09:24 | Outpatient (CLI) | payer OTHER, SELFPAY ==
[2019-12-01 10:52] VITALS: BMI 23.3
--- NOTE | 2019-12-26 10:00 | MRI_ITS ---
STUDY: MRI ABDOMEN WITH AND WITHOUT CONTRAST REASON FOR EXAM: Female, [address], liver lesions TECHNIQUE: Standardized fat and water weighted pulse sequences were obtained in all 3 orthogonal planes post contrast administration. 11ml DOtarem via IV was administered for the contrast portion of the examination. COMPARISON: CT 12/01/2019 FINDINGS: The visualized lung bases are unremarkable. The visualized portions of the heart are within normal limits. There is an 8 mm round subtle hyperintensity of the lateral aspect of the anterior segment the right lobe of the liver which demonstrates peripheral contrast enhancement which fills in over time and is imperceptible on the portal venous phase images felt to represent a hemangioma. There is a 1.2 cm slightly hyperintense mass within the lateral aspect of the posterior segment the right lobe of the liver which also demonstrates peripheral contrast enhancement which fills in over time and is imperceptible on the portal venous phase images felt to represent a hemangioma. Other smaller lesions within the liver do not demonstrate contrast enhancement consistent with cysts. Normal gallbladder and extrahepatic biliary system. Normal spleen. Normal pancreas. Normal bilateral adrenal glands. Normal right kidney. Normal left kidney. Normal visualized stomach. Normal small intestine. Normal colon. There is non-visualization of the appendix. Normal abdominal aorta. Normal inferior vena cava. Normal retroperitoneum. Normal abdominal wall. Normal osseous structures. MRI/MRI Abd WITH and W/O Contrast IMPRESSION: MRI confirms multiple small masses in the liver felt to represent a combination of hemangiomas and cysts. Due to the small size of the lesions definitive characterization is a somewhat difficult. Follow-up MRI is recommended in 6 months document stability. Electronically Signed: Lucas Donis MD at 13:33 EDT Tel , Service support ,
== END ==
PROVIDERS: PCP Family Medicine; Referring Provider Family Medicine; Visit Provider Family Medicine
DX: K76.9 Liver disease, unspecified (principal)
CPT/HCPCS: 74183; A9575

== ENCOUNTER → 2020-07-14 12:49 | Outpatient (CLI) | payer OTHER, SELFPAY ==
--- NOTE | 2020-07-14 13:00 | MRI_ITS ---
STUDY: MRI ABDOMEN WITH AND WITHOUT CONTRAST REASON FOR EXAM: Female, 54 years old. Multiple liver lesions seen on CT, follow up, no new complaints TECHNIQUE: Standardized fat and water weighted pulse sequences were obtained in all 3 orthogonal planes post contrast administration. IV 11ml Dotarem was administered for the contrast portion of the examination. COMPARISON: 12/26/2019 FINDINGS: The visualized lung bases are unremarkable. The visualized portions of the heart are within normal limits. The previously described hyperintensities within the periphery of the right lobe of the liver are less distinct than on the prior study on the T2-weighted images and with little if any contrast enhancement on the enhanced images. 2 small subcentimeter cysts are seen within the medial segment left lobe are also unchanged. There are surgical clips in the gallbladder fossa consistent with a prior cholecystectomy. Normal spleen. Normal pancreas. Normal bilateral adrenal glands. Normal right kidney. Tiny cyst in the midsection of the left kidney. Normal visualized stomach. Normal small intestine. Normal colon. There is non-visualization of the appendix. Normal abdominal aorta. Normal inferior vena cava. Normal retroperitoneum. Normal abdominal wall. Normal osseous structures. MRI/MRI Abd WITH and W/O Contrast IMPRESSION: No change from 12/26/2019. One more follow-up MRI is recommended in 6 months to further document stability of these likely benign lesions. Electronically Signed: Lucas Donis MD at 12:31 EST Tel , Service support ,
== END ==
PROVIDERS: PCP Family Medicine; Referring Provider Family Medicine; Visit Provider Family Medicine
DX: K76.9 Liver disease, unspecified (principal); R93.2 Abnormal findings on diagnostic imaging of liver and biliary tract
CPT/HCPCS: 74183; A9575; A4216

== ENCOUNTER → 2021-02-23 09:47 | Outpatient (CLI) | payer OTHER, SELFPAY ==
--- NOTE | 2021-02-23 10:00 | MRI_ITS ---
STUDY: MRI ABDOMEN WITH AND WITHOUT CONTRAST REASON FOR EXAM: Female, 55 years old. LIVER LESION 6 month f/u TECHNIQUE: Standardized fat and water weighted pulse sequences were obtained in all 3 orthogonal planes post contrast administration. IV 11ml Dotarem was administered for the contrast portion of the examination. COMPARISON: MRI abdomen dated 07/14/[address] scan obtained on 12/01/2019.. FINDINGS: The visualized lung bases are unremarkable. The visualized portions of the heart are within normal limits. 2 cysts visualized in the anteromedial aspect of the right lobe of the liver best visualized on axial series 1000 202 measuring 1.0 x 0.7 and 0.7 x 0.7 cm that demonstrate subtle wall enhancement after contrast administration are seen on series 11 image 15, no evidence of soft tissue tumor component is seen, no significant decrease in size is visualized in comparison to the prior studies. No evidence of intrahepatic biliary dilatation is seen. Normal gallbladder and extrahepatic biliary system. Normal spleen. Normal pancreas. Normal bilateral adrenal glands. Normal right kidney. Normal left kidney. Normal visualized stomach. Normal small intestine. Normal colon. The appendix is visualized and appears normal. Normal abdominal aorta. Normal inferior vena cava. Normal retroperitoneum. Normal abdominal wall. Normal osseous structures. MRI/MRI Abd WITH and W/O Contrast IMPRESSION: Simple cysts visualized in the liver demonstrate no significant change in comparison to the prior study. Electronically Signed: Fer Barron MD at 13:23 EDT Tel , Service support ,
== END ==
PROVIDERS: PCP Family Medicine; Referring Provider Family Medicine; Visit Provider Family Medicine
DX: D18.03 Hemangioma of intra-abdominal structures (principal)
CPT/HCPCS: 74183; A9575

== ENCOUNTER → 2022-01-11 | Outpatient (CLI) | payer OTHER, SELFPAY | END | disposition home or self-care (01) | PROVIDERS: PCP Family Medicine; Visit Provider Family Medicine | DX: R35.0 Frequency of micturition (principal); R10.30 Lower abdominal pain, unspecified | CPT/HCPCS: 87086; 87088 ==

== ENCOUNTER 2022-03-29 08:23 | Emergency (ER) | payer OTHER, SELFPAY ==
[2022-03-29 08:24] VITALS: BP 175/89; PULSE 54; RESP 16; TEMP 36.1; O2SAT 100; BMI 22.6
--- NOTE | 2022-03-29 08:53 | CT_ITS ---
STUDY: CT ABDOMEN AND PELVIS WITH CONTRAST REASON FOR EXAM: Female, 56 years old. LLQ pain -- IV PO Contrast, tx divertic 01/06, r/o complicati RADIATION DOSAGE (If Supplied By Facility): CTDIvol = ( 10.88 ) mGy, DLP = ( 363.72 ) mGycm TECHNIQUE: Transaxial images were obtained from the dome of the diaphragm to the symphysis pubis without oral contrast. IV 100mL Isovue-300 was administered. Sagittal and coronal images were reconstructed. Individualized dose optimization techniques were used for this CT. COMPARISON: Comparison is made with prior study dated 12/01/2019. FINDINGS: The visualized lung bases are unremarkable. The visualized portions of the heart are within normal limits. Tiny cysts are once again seen in the left lobe of the liver. A small cyst is also seen in the lower aspect of the right lobe of the liver. Borderline hepatomegaly. The patient is status post cholecystectomy. Normal spleen. Normal pancreas. Normal bilateral adrenal glands. Normal right kidney. Normal left kidney. Normal visualized stomach. Normal small intestine. There is diverticulosis, with thickening of the colon wall, and pericolonic inflammation changes consistent with acute diverticulitis. Small amount of free fluid is seen in the cul-de-sac. The appendix is visualized and appears normal. Normal abdominal aorta. Normal inferior vena cava. Normal retroperitoneum. Normal urinary bladder. There is absence of the uterus consistent with a prior hysterectomy. Normal abdominal wall. There are mild degenerative changes of the visualized lumbar spine. CT/Abdomen/Pelvis WITH Contrast IMPRESSION: Mild degree of sigmoid diverticulitis with a small amount of free fluid in the pelvis. Stable small hepatic cysts. Electronically Signed: Esteban Gong MD at 11:36 EDT ,
--- NOTE | 2022-03-29 08:54 | EDS_ITS ---
HPI HPI - GI History of Present Illness Chief Complaint: Abd Pain Informant: patient Narrative Narrative: Presents here for evaluation of persistent intermittent abdominal pain left lower quadrant. She had diverticulitis 2 years ago that treated 6 weeks improvement follow-up with a surgeon Dr. Chavez states had attempted colonoscopy to swallowing. Thin barium swallow was performed. No issues until January 06 of this year. She had symptoms she was on 1 round antibiotics from her PCP. She still is having intermittent symptoms. She seen her PCP 10 days ago referred to GI Dr. Friend, however appointment not till May 27. She had a urine at that time that was negative she denies urinary symptoms. Normal bowel movements nonbloody. No fever. No vomiting or diarrhea. She took 2 omeprazole's yesterday, however does not need to take it persistently. History of migraines on propanolol. Due to continued symptoms and unable to get into GI, she decided to come here. She denies any fevers. Additional history of rheumatoid arthritis on hydroxychloroquine. Prior similar symptoms: Yes PFSH PFSH Medical History Acute diverticulitis Constipation GERD (gastroesophageal reflux disease) Hypertension Migraines Non-smoker Rheumatoid arthritis Home Medications alprazolam 0.5 mg tablet 0.5 mg PO DAILY PRN Anxiety 12/01/19 [History Last Taken Unknown] hydroxychloroquine 200 mg tablet 300 mg PO DAILYCM 12/01/19 [History Last Taken Unknown] omeprazole 20 mg capsule,delayed release 20 mg PO DAILY PRN Heartburn 12/01/19 [History Last Taken Unknown] propranolol 10 mg tablet 10 mg PO BID 12/01/19 [History Last Taken Unknown] cefdinir 300 mg capsule 300 mg PO BID #20 caps 03/29/22 [Rx Last Taken Unknown] metronidazole 500 mg tablet 500 mg PO TID #30 tabs 03/29/22 [Rx Last Taken Unknown] Allergy/AdvReac Type Severity Reaction Status Date / Time shellfish derived Allergy Hives Verified 03/29/22 08:24 codeine AdvReac Other Verified 03/29/22 08:24 Penicillins AdvReac Nausea/Vom/ Verified 03/29/22 08:24 Diarrhea Surgical History History of cholecystectomy Social History Smoking Status: Never smoker ROS ROS ED Constitutional Constitutional ED: Denies chills, fever(s) or sweats Eyes Eyes: Denies change in vision ENT ENT ED: Denies dysphagia or sore throat Cardiovascular Cardiovascular: Denies chest pain, leg edema, palpitations or racing heartbeat Respiratory/Chest Respiratory/Chest: Denies cough, dyspnea or dyspnea on exertion Gastrointestinal Gastrointestinal: Reports abdominal pain; Denies diarrhea, nausea or vomiting Genitourinary Genitourinary ED: Denies dysuria, hematuria or urinary frequency Musculoskeletal Musculoskeletal: Denies back pain, extremity pain or neck pain Integumentary Denies rash or wounds Neurologic Neurologic: Denies headache(s), paresthesias or weakness EXAM Physical Exam Const Vital Signs: 03/29/22 08:24 03/29/22 09:05 03/29/22 12:13 Temperature 97.0 F L Temperature Source Temporal Pulse Rate 54 L 69 Respiratory Rate 16 16 Blood Pressure 175/89 H 151/92 H 141/88 H Blood Pressure Mean 117 111 105 Pulse Ox 100 97 Oxygen Delivery Method Room Air Room Air Positive well nourished and well developed Constitutional Narrative: Nontoxic General Appearance ED: well developed and NAD HEENT Reports moist mucous membranes normocephalic and atraumatic Eyes PERRL, EOMs intact bilaterally and conjunctivae normal General Eye ED: Yes normal appearance of both eyes Neck no lymphadenopathy and supple General: Negative for tenderness Chest Wall Chest: Negative for tenderness Resp normal respiratory effort and normal air movement Effort and Inspection: symmetric chest movement; Negative for respiratory distress Cardio regular rate, regular rhythm and no murmurs Peripheral Pulses: pulses 2+ throughout GI normal to inspection, nondistended, normoactive bowel sounds GI Narrative: Minimal tenderness suprapubic left lower quadrant. Negative Noland's or McBurney's tenderness. Palpation: Negative for guarding or rebound tenderness present Back/Spine no CVA tenderness and no thoracic nor lumbar tenderness Extremity normal to inspection General Extremety ED: Negative for edema or tenderness General Extremity: Negative for edema Neuro oriented x3 and no sensory deficits noted Sensorium / Orientation: awake and alert Skin no rashes or lesions noted and no wounds MDM MDM MDM Narrative Medical decision making narrative: Patient labs are stable she declines any pain medicines. Contrast CT obtained due to persistent intermittent symptoms left lower quadrant pain for the past 10 weeks. Results mild sigmoid diverticulitis with no abscess or complications. Discussed with patient we will start another round of antibiotics of cefdinir and Flagyl for 10 days. Use Tylenol as needed. Return precautions. GI follow- up. All questions were answered. Lab Data Attestation: I reviewed the patient's lab results. Labs: Laboratory Results - last 24 hr 03/29/22 03/29/22 08:40 08:40 WBC 5.3 RBC 4.60 Hgb 13.4 Hct 40.1 MCV 87.2 MCH 29.1 MCHC 33.4 RDW Std Deviation 40.9 RDW Coeff of Veronica 13.0 Plt Count 227 MPV 10.4 Immature Gran % (Auto) 0.400 Neut % (Auto) 55.3 Lymph % (Auto) 32.0 Merrick % (Auto) 8.8 Eos % (Auto) 2.7 Baso % (Auto) 0.8 Absolute Neuts (auto) 2.9 Absolute Lymphs (auto) 1.68 Nucleated RBC % 0 Sodium 143 Potassium 3.9 Chloride 113 H Carbon Dioxide 28.0 Anion Gap 2 L BUN 9 Creatinine 0.91 Estim Creat Clear Calc 54.60 Est GFR (MDRD) Af Amer 82 Est GFR (MDRD) Non-Af 68 BUN/Creatinine Ratio 9.9 L Glucose 67 L Calcium 9.9 Radiography Diagnostic Testing: Clinical Impression(s) from Imaging Studies Abdomen/Pelvis CT 03/29/22 08:53 IMPRESSION: Mild degree of sigmoid diverticulitis with a small amount of free fluid in the pelvis. Stable small hepatic cysts. Electronically Signed: Esteban Gong MD at 11:36 EDT , Discharge Plan Triage Chief Complaint: Abd Pain ED Provider: Bret Parikh Dx/Rx/DC Orders Clinical Impression: Diverticulitis of sigmoid colon, Abdominal pain, LLQ Instructions: Diverticulitis Dc Prescriptions: New cefdinir 300 mg capsule 300 mg PO BID Qty: 20 0RF metronidazole 500 mg tablet 500 mg PO TID Qty: 30 0RF No Action alprazolam 0.5 MG tablet 0.5 mg PO DAILY PRN (Reason: Anxiety) propranolol 10 MG tablet 10 mg PO BID omeprazole 20 MG capsule,delayed release(DR/EC) 20 mg PO DAILY PRN (Reason: Heartburn) hydroxychloroquine 200 MG tablet 300 mg PO DAILYCM Primary Care Provider: Brissa Davies Referrals: Brissa Davies MD [Primary Care Provider] - 1 Week Friend,DO Gabino [Med Staff - Active Staff] - 1-2 Weeks Disposition Disposition: Home, Self Care Discharge Date/Time: 03/29/22 12:43
[2022-03-29 09:01] LABS: Absolute Lymphocyte Count 1.68 X10^3/uL (0.83-4.51); Absolute Neutrophil Count 2.9 X10^3/uL (2.0-7.7); Basophil# 0.04 X10^3/uL; Basophil% 0.8 % (0-1); Eosinophil# 0.14 X10^3/uL; Eosinophils% 2.7 % (0-5); Hematocrit 40.1 % (37-47); Hemoglobin 13.4 g/dL (12.0-15.0); Lymphocyte # 1.68 X10^3/ul (0.83-4.51); Mean Corp Hgb Conc 33.4 g/dL (32-36); Mean Corpuscular Hgb 29.1 pg (27.0-32.0); Mean Corpuscular Volume 87.2 fL (81-99); Mean Platelet Vol. 10.4 fl (6.2-12.0); Monocyte# 0.46 X10^3/uL; Monocyte% 8.8 % (0-10); NRBC Flagged by Analyzer 0 % (0-5); Neutrophil # 2.91 X10^3/uL (2.7-7.7); Neutrophil % 55.3 % (47-70); Platelet Count 227 K/mm3 (150-450); RBC Distribution Width SD 40.9 fl (35.1-43.9); White Blood Count 5.3 K/mm3 (4.4-11.0)
[2022-03-29 09:05] VITALS: BP 151/92
[2022-03-29] MEDS: 0.9% Normal Saline 1,000 ML 125 ML IV (09:07)
[2022-03-29 09:20] LABS: Anion Gap 2 (5-15); BUN 9 mg/dL (7-18); BUN/Creat Ratio 9.9 RATIO (10-20); Calcium,Total 9.9 mg/dL (8.5-10.1); Chloride 113 mmol/L (98-107); Creatinine, Serum 0.91 mg/dL (0.55-1.02); EST Glomerular Filtration Rate 68 mL/min (>60); Est Glom Filt Rate - Afr Amer 82 mL/min (>60); Glucose 67 mg/dL (74-106); Potassium 3.9 mmol/L (3.5-5.1); Sodium Level 143 mmol/L (136-145)
[2022-03-29 12:13] VITALS: BP 141/88; PULSE 69; RESP 16; O2SAT 97
== END 2022-03-29 12:43 | disposition home or self-care (01) ==
PROVIDERS: Emergency Provider Emergency Medicine; PCP Family Medicine; Visit Provider Emergency Medicine
DX: K57.32 Diverticulitis of large intestine without perforation or abscess without bleeding (principal); M06.9 Rheumatoid arthritis, unspecified; K21.9 Gastro-esophageal reflux disease without esophagitis; I10 Essential (primary) hypertension; G43.909 Migraine, unspecified, not intractable, without status migrainosus; Z90.49 Acquired absence of other specified parts of digestive tract; Z79.899 Other long term (current) drug therapy
CPT/HCPCS: 74177; 80048; 85025; 96360; 96361; 99284; J7030; Q9967; A4216

== ENCOUNTER → 2022-04-01 | Outpatient (CLI) | payer OTHER, SELFPAY ==
[2022-04-01 17:17] LABS: Erythrocyte Sedimentation Rate 4 mm/hr (0-30)
[2022-04-01 18:00] LABS: CRP < 2.90 mg/L (0.0-3.0); LDH 179 U/L (84-246); Uric Acid 4.2 mg/dL (2.6-6.0)
[2022-04-04 15:08] LABS: Endomysial Antibody IgA Negative (Negative)
[2022-04-05 08:54] LABS: Immunoglobulin A 207 mg/dL (87-352); t-Transglutaminase IgA <2 U/mL (0-3)
[2022-04-10 13:06] LABS: Albumin 3.9 g/dL (2.9-4.4); Alpha-1-Globulins 0.2 g/dL (0.0-0.4); Alpha-2-Globulins 0.6 g/dL (0.4-1.0); Cytoplasmic Ab (C-ANCA) <1:20 titer (Neg:<1:20); Gamma Globulin 1.1 g/dL (0.4-1.8); Immunoglobulin A 203 mg/dL (87-352); Immunoglobulin G 1117 mg/dL (586-1602); Immunoglobulin M 32 mg/dL (26-217); PROEL- TOTAL PROTEIN 6.8 g/dL (6.0-8.5)
[2022-04-11 19:35] LABS: Immunoglobulin E 15 IU/mL (6-495); Perinuclear Ab (P-ANCA) <1:20 titer (Neg:<1:20)
== END | disposition home or self-care (01) ==
LOC: LAB 16:31
PROVIDERS: PCP Family Medicine; Referring Provider Internal Medicine Gastroenterology; Visit Provider Internal Medicine Gastroenterology
DX: K57.32 Diverticulitis of large intestine without perforation or abscess without bleeding (principal); R10.32 Left lower quadrant pain
CPT/HCPCS: 36415; 82784; 82785; 83516; 83615; 84165; 84550; 85652; 86140; 86255; 86256; 86334

== ENCOUNTER → 2022-04-02 | Outpatient (CLI) | payer OTHER, SELFPAY ==
[2022-04-06 08:55] LABS: Pancreatic Elastase, Fecal 476 (>200)
[2022-04-11 19:21] LABS: Calprotectin, Stool 113 ug/g (0-120); Fats, Neutral Normal (.); Fats, Total Normal (.)
== END | disposition home or self-care (01) ==
LOC: LABSPEC 11:14
PROVIDERS: PCP Family Medicine; Referring Provider Internal Medicine Gastroenterology; Visit Provider Internal Medicine Gastroenterology
DX: K57.32 Diverticulitis of large intestine without perforation or abscess without bleeding (principal); K58.9 Irritable bowel syndrome, unspecified; R10.32 Left lower quadrant pain
CPT/HCPCS: 82653; 82705; 83630; 83993; 87493; 87506

== ENCOUNTER → 2022-04-29 | Outpatient (CLI) | payer OTHER, SELFPAY | END | disposition home or self-care (01) | LOC: LABSPEC 07:39 | PROVIDERS: PCP Family Medicine; Referring Provider Internal Medicine Gastroenterology; Visit Provider Internal Medicine Gastroenterology | DX: A49.8 Other bacterial infections of unspecified site (principal) ==

== ENCOUNTER → 2022-08-22 | Outpatient (CLI) | payer OTHER, SELFPAY | END | disposition home or self-care (01) | LOC: LABSPEC 11:51 | PROVIDERS: PCP Family Medicine; Visit Provider Student in an Organized Health Care Education/Training Program | DX: R30.9 Painful micturition, unspecified (principal) | CPT/HCPCS: 87086 ==

== ENCOUNTER → 2022-09-30 | Outpatient (CLI) | payer OTHER, SELFPAY ==
[2022-09-30 15:41] LABS: Absolute Lymphocyte Count 2.22 X10^3/uL (0.83-4.51); Absolute Neutrophil Count 2.9 X10^3/uL (2.0-7.7); Basophil# 0.05 X10^3/uL; Basophil% 0.8 % (0-1); Eosinophil# 0.22 X10^3/uL; Eosinophils% 3.7 % (0-5); Hematocrit 38.6 % (37-47); Hemoglobin 12.9 g/dL (12.0-15.0); Lymphocyte # 2.22 X10^3/ul (0.83-4.51); Lymphocyte % 37.6 % (19-41); Mean Corp Hgb Conc 33.4 g/dL (32-36); Mean Corpuscular Hgb 29.9 pg (27.0-32.0); Mean Corpuscular Volume 89.6 fL (81-99); Mean Platelet Vol. 10.3 fl (6.2-12.0); Monocyte# 0.54 X10^3/uL; Monocyte% 9.2 % (0-10); NRBC Flagged by Analyzer 0 % (0-5); Neutrophil # 2.86 X10^3/uL (2.7-7.7); Neutrophil % 48.5 % (47-70); Platelet Count 202 K/mm3 (150-450); RBC Distribution Width CV 12.6 % (11.6-14.6); RBC Distribution Width SD 41.5 fl (35.1-43.9); Red Blood Count 4.31 M/mm3 (4.2-5.4); White Blood Count 5.9 K/mm3 (4.4-11.0)
[2022-09-30 16:23] LABS: ALB/GLOB Ratio 1.3 RATIO (0.9-2.4); AST(SGOT) 22 U/L (15-37); Alanine Aminotransfer ALT/SGPT 33 U/L (13-56); Albumin, Serum 3.8 g/dL (3.2-5.0); Alkaline Phosphatase 74 U/L (45-117); Anion Gap 4 (5-15); BUN 9 mg/dL (7-18); BUN/Creat Ratio 9.2 RATIO (10-20); Calcium,Total 10.1 mg/dL (8.5-10.1); Chloride 110 mmol/L (98-107); Creatinine, Serum 0.98 mg/dL (0.55-1.02); EST Glomerular Filtration Rate 62 mL/min (>60); Est Glom Filt Rate - Afr Amer 76 mL/min (>60); Globulin 2.9 g/dL (2.2-4.2); Glucose 79 mg/dL (74-106); Potassium 3.9 mmol/L (3.5-5.1); Protein, Total 6.7 g/dL (6.4-8.2); Sodium Level 142 mmol/L (136-145)
== END | disposition home or self-care (01) ==
LOC: LAB 14:07
PROVIDERS: PCP Family Medicine; Referring Provider Internal Medicine Rheumatology; Visit Provider Internal Medicine Rheumatology
DX: M06.4 Inflammatory polyarthropathy (principal); R76.8 Other specified abnormal immunological findings in serum; M47.892 Other spondylosis, cervical region; K21.9 Gastro-esophageal reflux disease without esophagitis; F41.9 Anxiety disorder, unspecified; Z79.899 Other long term (current) drug therapy
CPT/HCPCS: 36415; 80053; 85025

== ENCOUNTER 2022-12-06 12:48 | Day surgery (SDC) | payer OTHER, SELFPAY ==
--- NOTE | 2022-12-06 | IMM_PTH ---
PATIENT: POLA OTTO LOC: EN U#:[id number] AGE/SX: 56/F ROOM: RE12/06/[address]: Dr. Gabino Friedman DO : 1965 BED: DIS: 12/06/2022 SPEC #: [id number] RECD: 12/08/22 12:14 STATUS: LEONIDAS REQ #: [id number] ALEX: 12/06/22 00:[address]: Gabino Friedman DEPT: IMMUNOHISTOCHEMISTRY RECD BY: Yara Lockhart ENTERED: 12/08/22 12:14 SP TYPE: IMMUNO OTHR DR: Dr. Brissa Davies MD Tissues: A - Esophagus, NOS Procedures: P53 (initial) KI-67 (add) PHYSICIAN & INSTITUTION [place] [id number] SPECIMEN INFORMATION: Tissue Source: A ? Distal esophagus Clinical Info: Constipation, diverticular disease, GERD Specimen Number: [id number] CPT code: 53669 METHODOLOGY: Deparaffinized sections of prefer/formalin-fixed tissue or PAP/DQ stained slides are incubated with monoclonal/polyclonal antibodies/oligonucleotide probes. Localization is made via biotin free immunoperoxidase method. Appropriate controls are performed and reacted as expected. Results on target cell population are indicated in the following table: RESULTS: ANTIBODY / CLONE RESULT Block A P53 (DO-7) negative Ki-67 (30-9) positive, very low These tests were developed and their performance characteristics determined by [facility]. They may not have been cleared or approved by the U.S. Food and Drug Administration. The FDA has determined that such clearance or approval is not necessary. The above immunohistochemical/dualISH markers are ordered and reviewed by the Pathologist. INTERPRETATION: A. Distal esophagus, biopsy: Negative for dysplasia. SJ:wanda 12/09/2022
--- NOTE | 2022-12-06 13:03 | PCM.HP.BLA ---
History and Physical Date of Admission: 12/06/22 56 F who presents to the office today for f/u constipation. She is doing much better than at her initial appt 04/01/22. She presented for LLQ pain due to diverticulitis. First episode of diverticulitis two years prior; colonoscopy attempted 11/2019 but swelling impeded colonoscope passage and underwent barium enema. Diverticulitis flare 12/2021 treated with antibiotics, but did not feel she completely cleared. She had been having difficulty with constipation and bloating for the last two years. She is now taking mineral oil nightly which is working very well. She also takes metamucil powder every morning. Now having BM 1-2x daily, not straining. No melena or hematochezia. Acid reflux from tea. Takes Pepcid prn. Can choke a little bit on food or pills. Had EGD (negative) in 2014 or 2015 along with colonoscopy (diverticulosis). 03/2022 labs: unremarkable CBC, ESR, CMP, uric acid, LDH, CRP, G/A/M/E, SPEP/RICHARD, ANCA, celiac, fecal fats, stool calprotectin, fecal elastase. Positive fecal lactoferrin, positive C diff A/B antigen, positive C diff PCR (treated with vancomycin) CT abd/pel 10.. noting hepatic cysts, stable; borderline hepatomegaly; inflammatory changes consistent with acute diverticulitis ROS Const Constitutional: Positive for fatigue ENT ENT: No difficulty swallowing Gastro GI: Positive for abdominal pain and nausea/dyspepsia; No belching, bloating, change in bowel habits, change in stool character, coffee ground emesis, constipation, cramping, diarrhea, heartburn, difficulty swallowing, feeling full early, excessive flatus, incontinent of stools, Vomiting blood/hematemesis, Blood in stool, loose stools, Black,tarry stools, pain with swallowing, vomiting or other Musc Musculoskeletal: Positive for joint pain, muscle weakness and Arthritis Skin Skin: No yellowing of the eye or itchy eyes Psych Psychiatric: No anxiety and No depression Endo Endocrine: Positive for fatigue Aller/Imm Allergy/Immunologic: No itchy eyes Samir/Lymp Hematologic/Lymphatic: No easy bleeding or easy bruising Exam Const General: cooperative, healthy appearing and comfortable Nutritional Appearance: average body habitus Orientation: alert, awake and oriented x3 Quality Reporting Tobacco Screening (CMS 138) Smoking Status: Former smoker Assessment and Plan Assessment and Plan (1) Constipation: ?Status:?Acute ?Plan: 56 yr old female with diverticular disease, constipation now well controlled with mineral oil and psyllium husk, mild intermittent acid reflux for which she takes prn famotidine. We discussed possibility of EGD and colonoscopy (since last one was incomplete); she is helping her mother who currently has some health issues so she needs to hold off; will f/u 6 mos and reevaluate then. (2) Diverticular disease: ?Status:?Acute ?Plan: as above (3) GERD (gastroesophageal reflux disease): ?Status:?Acute ?Plan: as above I have examined the patient and the H&P has been reviewed. There are no clinical changes since date of exam.
[2022-12-06] MEDS: Lactated Ringers 1,000 ML 15 ML IV (13:16)
[2022-12-06 13:17] VITALS: BP 138/82; PULSE 56; RESP 18; TEMP 37; O2SAT 100; BMI 22.6
--- NOTE | 2022-12-06 14:00 | COLBX_PTH ---
PATIENT: POLA OTTO LOC: EN U#:[id number] AGE/SX: 56/F ROOM: RE12/06/[address]: Dr. Gabino Friedman DO : 1965 BED: DIS: 12/06/2022 SPEC #: [id number] RECD: 12/06/22 14:00 STATUS: LEONIDAS RENam #: [id number] ALEX: 12/06/22 14:[address]: Gabino Friedman DEPT: SURGICAL PATHOLOGY RECD BY: Aramis Anand ENTERED: 12/07/22 11:27 SP TYPE: COLON BX OTHR DR: Dr. Brissa Davies MD Tissues: A - Esophagus, NOS B - Duodenum, NOS Procedures: Special Stain Group II Surgery Specimen Level IV Alcian Blue/PAS (control) HEADER OPERATION: Colonoscopy, EGD (MAC), biopsy PRE-OP DIAGNOSIS: Constipation, diverticular disease, GERD TISSUE SUBMITTED: A ? Distal esophagus biopsy, B ? Duodenum biopsy MICROSCOPIC DIAGNOSIS A. Distal esophagus, biopsy: Fragments of gastroesophageal mucosa with focal intestinal metaplasia (goblet cell metaplasia), consistent with Plunkett's esophagus. Chronic inflammation. Negative for dysplasia. See comment. B. Duodenum, biopsy: A fragment of duodenal mucosa, no pathologic diagnosis. SJ:rg 12/08/2022 COMMENT A. Alcian blue/PAS stain with matched control is used in the evaluation of the specimen. Immunohistochemistry ([id number]) for P53 and Ki-67 will be performed and results will be reported separately. MICROSCOPIC DESCRIPTION Slides are reviewed. GROSS DESCRIPTION A - Received in fixative is one container labeled with the patient's name and designated distal esophagus. The specimen consists of multiple irregular fragments of light snyder soft tissue that in aggregate measure 1 x 0.3 x 0.1 cm. The specimen is totally submitted in one cassette. B - Received in fixative is one container labeled with the patient's name and designated duodenum biopsy. The specimen consists of one irregular fragment of light snyder soft tissue that measures 0.3 x 0.3 x 0.1 cm. The specimen is totally submitted in one cassette. / SJ:wanda 12/07/2022 TC:5 CPT: 68232 x2, 60331
[2022-12-06 15:10] VITALS: BP 109/69; BP 138/82; PULSE 67; RESP 14; TEMP 36.6; O2SAT 100
[2022-12-06 15:15] VITALS: BP 110/69; BP 138/82; PULSE 72; RESP 14; O2SAT 100
--- NOTE | 2022-12-06 15:15 | OP.EGD_ITS ---
Patient Name: Melva Rhoades Procedure Date: 12/06/2022 2:34 PM Date of : 1965 Age: 56 Procedure: Upper GI endoscopy Indications: Heartburn Providers: Gabino Friedman DO Medicines: Monitored Anesthesia Care Patient Profile: This is a 56 year old female. Refer to note in patient chart for documentation of history and physical. Patient has symptoms of chronic heartburn. Complications: No immediate complications. Procedure: Pre-Anesthesia Assessment: - Prior to the procedure, a History and Physical was performed, and patient medications and allergies were reviewed. The risks and benefits of the procedure and the sedation options and risks were discussed with the patient. All questions were answered and informed consent was obtained. Patient identification and proposed procedure were verified by the physician. Mental Status Examination: alert and oriented. Airway Examination: normal oropharyngeal airway and neck mobility. Respiratory Examination: clear to auscultation. CV Examination: normal. Prophylactic Antibiotics: The patient does not require prophylactic antibiotics. Prior Anticoagulants: The patient has taken no previous anticoagulant or antiplatelet agents. After reviewing the risks and benefits, the patient was deemed in satisfactory condition to undergo the procedure. The anesthesia plan was to use monitored anesthesia care (MAC). Immediately prior to administration of medications, the patient was re-assessed for adequacy to receive sedatives. The heart rate, respiratory rate, oxygen saturations, blood pressure, adequacy of pulmonary ventilation, and response to care were monitored throughout the procedure. The physical status of the patient was re-assessed after the procedure. After obtaining informed consent, the endoscope was passed under direct vision. Throughout the procedure, the patient's blood pressure, pulse, and oxygen saturations were monitored continuously. The pediatric colonoscope was introduced through the mouth, and advanced to the second part of duodenum. The upper GI endoscopy was accomplished without difficulty. The patient tolerated the procedure well. Scope In: 2:46:46 PM Scope Out: 2:52:58 PM Total Procedure Duration Time 0 hours 6 minutes 12 seconds Findings: A single area of ectopic gastric mucosa was found in the upper third of the esophagus, 20 cm from the incisors. The Z-line was irregular and was found 37 cm from the incisors. Biopsies were taken with a cold forceps for histology. Verification of patient identification for the specimen was done. Estimated blood loss was minimal. A small hiatal hernia was present. No other significant abnormalities were identified in a careful examination of the stomach. Patchy mildly erythematous mucosa without active bleeding and with no stigmata of bleeding was found in the first portion of the duodenum. Biopsies were taken with a cold forceps for histology. Verification of patient identification for the specimen was done. Estimated blood loss was minimal. Impression: - Ectopic gastric mucosa in the upper third of the esophagus. - Z-line irregular, 37 cm from the incisors. Biopsied. - Small hiatal hernia. - Erythematous duodenopathy. Biopsied. Recommendation: - Discharge patient to home. - Resume previous diet. - Continue present medications. - Await pathology results. Procedure Code(s): --- Professional --- 45228, Esophagogastroduodenoscopy, flexible, transoral; with biopsy, single or multiple CPT copyright 2017 [employer]. All rights reserved. The codes documented in this report are preliminary and upon database reporting consultant review may be revised to meet current compliance requirements. Gabino Friedman DO 12/06/2022 3:15:02 PM This report has been signed electronically. Number of Addenda: 0 Note Initiated On: 12/06/2022 2:34 PM
--- NOTE | 2022-12-06 15:16 | OP.CCLET_ITS ---
12/06/2022 Brissa Davies [place] [id number] [facility] [address] Re : Upper GI endoscopy procedure for Melva Rhoades Dear Dr. Davies This procedure was performed on Tuesday, December 06, 2022. My impressions and recommendations are as follows: Impressions : - Ectopic gastric mucosa in the upper third of the esophagus. - Z-line irregular, 37 cm from the incisors. Biopsied. - Small hiatal hernia. - Erythematous duodenopathy. Biopsied. Recommendations : - Discharge patient to home. - Resume previous diet. - Continue present medications. - Await pathology results. My findings are described in the full procedure note, which is enclosed. If I can be of further assistance, please feel free to contact me at . Sincerely, Gabino Friedman, 12/06/2022 3:15:02 PM This report has been signed electronically.
[2022-12-06 15:20] VITALS: BP 110/69; BP 138/82; PULSE 70; RESP 14; O2SAT 100
--- NOTE | 2022-12-06 15:21 | OP.COLON_ITS ---
Patient Name: Melva Rhoades Procedure Date: 12/06/2022 2:53 PM Date of : 1965 Age: 56 Procedure: Colonoscopy Indications: Screening for colorectal malignant neoplasm Providers: Gabino Friedman DO Medicines: Monitored Anesthesia Care Patient Profile: This is a 56 year old female. Refer to note in patient chart for documentation of history and physical. Patient has symptoms of chronic heartburn. Last Colonoscopy: none. The patient's first colonoscopy is today. Complications: No immediate complications. Procedure: Pre-Anesthesia Assessment: - Prior to the procedure, a History and Physical was performed, and patient medications and allergies were reviewed. The risks and benefits of the procedure and the sedation options and risks were discussed with the patient. All questions were answered and informed consent was obtained. Patient identification and proposed procedure were verified by the physician. Mental Status Examination: alert and oriented. Airway Examination: normal oropharyngeal airway and neck mobility. Respiratory Examination: clear to auscultation. CV Examination: normal. Prophylactic Antibiotics: The patient does not require prophylactic antibiotics. Prior Anticoagulants: The patient has taken no previous anticoagulant or antiplatelet agents. After reviewing the risks and benefits, the patient was deemed in satisfactory condition to undergo the procedure. The anesthesia plan was to use monitored anesthesia care (MAC). Immediately prior to administration of medications, the patient was re-assessed for adequacy to receive sedatives. The heart rate, respiratory rate, oxygen saturations, blood pressure, adequacy of pulmonary ventilation, and response to care were monitored throughout the procedure. The physical status of the patient was re-assessed after the procedure. After I obtained informed consent, the scope was passed under direct vision. Throughout the procedure, the patient's blood pressure, pulse, and oxygen saturations were monitored continuously. The pediatric colonoscope was introduced through the anus and advanced to the terminal ileum. The colonoscopy was performed without difficulty. The patient tolerated the procedure well. The quality of the bowel preparation was good. Scope In: 2:55:03 PM Scope Withdrawal Time 0 hours 7 minutes 1 second Scope Out: 3:05:52 PM Total Procedure Duration Time 0 hours 10 minutes 49 seconds Findings: The perianal and digital rectal examinations were normal. Multiple small and large-mouthed diverticula were found in the recto-sigmoid colon, sigmoid colon and descending colon. The exam was otherwise without abnormality on direct and retroflexion views. Impression: - Diverticulosis in the recto-sigmoid colon, in the sigmoid colon and in the descending colon. - The examination was otherwise normal on direct and retroflexion views. - No specimens collected. Recommendation: - Discharge patient to home. - Resume previous diet. - Continue present medications. - Repeat colonoscopy in 10 days for screening purposes. Procedure Code(s): --- Professional --- G0121, Colorectal cancer screening; colonoscopy on individual not meeting criteria for high risk CPT copyright 2017 [employer]. All rights reserved. The codes documented in this report are preliminary and upon lapidarist review may be revised to meet current compliance requirements. Gabino Friedman DO 12/06/2022 3:20:42 PM This report has been signed electronically. Number of Addenda: 0 Note Initiated On: 12/06/2022 2:53 PM
--- NOTE | 2022-12-06 15:22 | OP.CCLET_ITS ---
12/06/2022 Brissa Davies [place] [address] [address] Re : Colonoscopy procedure for Melva Rhoades Dear Dr. Davies This procedure was performed on Tuesday, December 06, 2022. My impressions and recommendations are as follows: Impressions : - Diverticulosis in the recto-sigmoid colon, in the sigmoid colon and in the descending colon. - The examination was otherwise normal on direct and retroflexion views. - No specimens collected. Recommendations : - Discharge patient to home. - Resume previous diet. - Continue present medications. - Repeat colonoscopy in 10 days for screening purposes. My findings are described in the full procedure note, which is enclosed. If I can be of further assistance, please feel free to contact me at . Sincerely, Gabino Friedman, 12/06/2022 3:20:42 PM This report has been signed electronically.
[2022-12-06 15:25] VITALS: BP 112/80; BP 138/82; PULSE 60; RESP 16; TEMP 36.5; O2SAT 100
[2022-12-06 15:35] VITALS: BP 138/82
== END 2022-12-06 15:55 | disposition home or self-care (01) ==
LOC: EN 12:53 → AC 12:53
PROVIDERS: PCP Family Medicine; Referring Provider Family Medicine; Visit Provider Internal Medicine Gastroenterology
PROC: 0DJD8ZZ Inspection of Lower Intestinal Tract, Via Natural or Artificial Opening Endoscopic (ICD-10-PCS; CPT 45378; principal; 2022-12-06 13:55)
DX: K22.70 Barrett's esophagus without dysplasia (principal); K31.89 Other diseases of stomach and duodenum; K44.9 Diaphragmatic hernia without obstruction or gangrene; K57.30 Diverticulosis of large intestine without perforation or abscess without bleeding; I10 Essential (primary) hypertension; F41.9 Anxiety disorder, unspecified; Z79.899 Other long term (current) drug therapy; Z87.891 Personal history of nicotine dependence
CPT/HCPCS: 43239; 45378; 88305; 88313; 88341; 88342; J7120; J2405

== ENCOUNTER → 2023-03-31 | Outpatient (CLI) | payer OTHER, SELFPAY ==
--- NOTE | 2023-03-31 15:50 | RAD_ITS ---
STUDY: X-RAY - CERVICAL SPINE REASON FOR EXAM: Female, 57 years old. NECK PAIN TECHNIQUE: 5 view(s) of the cervical spine were obtained. COMPARISON: None FINDINGS: There are degenerative changes of the anterior atlantoaxial articulation. Normal odontoid process. There is straightening of the normal cervical lordosis. There is multi-level endplate spondylosis. There is multi-level degenerative disc disease with multilevel disc space narrowing. This is more severe C5-C7. Multilevel bilateral neural foraminal encroachment with nonspecific bilateral apophyseal hypertrophy. The soft tissue structures are unremarkable. There is no demonstrated fracture of the cervical spine. RAD/Cerv Spine 4 or 5 Views IMPRESSION: Multilevel degenerative disease with no acute fracture or subluxation. Electronically Signed: Devora Cook MD at 17:05 EDT ,
== END | disposition home or self-care (01) ==
LOC: MTRAD 15:45
PROVIDERS: PCP Family Medicine; Referring Provider Nurse Practitioner Family; Visit Provider Nurse Practitioner Family
DX: M54.2 Cervicalgia (principal); M06.9 Rheumatoid arthritis, unspecified
CPT/HCPCS: 72050

== ENCOUNTER 2023-12-04 10:17 | Day surgery (SDC) | payer OTHER, SELFPAY ==
[2023-12-04 10:37] VITALS: BP 145/87; PULSE 65; RESP 16; TEMP 36.9; O2SAT 100; BMI 22.6
[2023-12-04] MEDS: Lactated Ringers 1,000 ML 15 ML IV (10:45)
--- NOTE | 2023-12-04 11:30 | EGD_PTH ---
PATIENT: POLA OTTO LOC: EN U#:[id number] AGE/SX: 57/F ROOM: RE12/04/[address]: Dr. Gabino Friedman DO : 1965 BED: DIS: 12/04/2023 SPEC #: [id number] RECD: 12/04/23 14:20 STATUS: LEONIDAS SAVANNAH #: [id number] ALEX: 12/04/23 11:[address]: Gabino Friedman DEPT: SURGICAL PATHOLOGY RECD BY: Alena Cabrera ENTERED: 12/05/23 09:55 SP TYPE: EGD BIOPSY OT DR: Dr. Brissa Davies MD Tissues: Esophagus, NOS Procedures: Special Stain Group I Surgery Specimen Level IV Alcian Blue/PAS (control) HEADER OPERATION: EGD with biopsy PRE-OP DIAGNOSIS: Plunkett's esophagus , GERD TISSUE SUBMITTED: Distal esophagus biopsy MICROSCOPIC DIAGNOSIS Distal esophagus, biopsy: Gastroesophageal junctional mucosa with mild chronic inflammation. Focal changes of reflux. No evidence of goblet cell metaplasia. See comment. JASPER/ 12/06/2023 COMMENT Alcian blue/PAS stain with matched control is used in the evaluation of the specimen. MICROSCOPIC DESCRIPTION Slides are reviewed. GROSS DESCRIPTION Received in fixative is one container labeled with the patient's name and designated Distal esophagus biopsy. The specimen consists of multiple irregular fragments of light snyder soft tissue that in aggregate measure 1.2 x 0.4 x 0.1 cm. The specimen is totally submitted in one cassette. LEONARD/ 12/05/23 TC:3 CPT:09106,84015
--- NOTE | 2023-12-04 11:51 | HP.PCM_ITS ---
History and Physical Date of Admission: 12/04/23 POLA OTTO, is a 57 F who presents to the office today for follow up. [facility] ED 03.29.22 LQ abdominal pain. Biochemical workup and imaging performed. Diagnosed with diverticulitis and discharged with antibiotics. CT abd/pel hepatic cysts, stable; borderline hepatomegaly; inflammatory changes consistent with acute diverticulitis *BGI established 04.01.22 First episode of diverticulitis two years prior; colonoscopy attempted but swelling impeded colonoscope passage and underwent barium enema. Diverticulitis flare treated with ATB, but did not feel she completely cleared. She has been having difficulty with constipation and bloating for the last two years. BM QD with tenesmus and difficulty initiating BM, which is a reduction from BID when she was younger. She is taking fiber supplement QD. Colonoscopy with outside facility, she reports diverticulosis. ? Biochemical CBC, ESR, CMP, uric acid, LDH, LFT, CRP, globulin, GAME, RICHARD, ANCA, celiac without pertinent abnormality. Stool EP WNL. ? C.difficile PCR and A/B ag +, lactoferrin +. Start vancomycin. Stool 04.29.22 C.difficile (formed) WNL. OV 06.24.22 with use of nightly mineral oil and Metamucil she is having 1- 2BM/day without straining. ? EGD and colonoscopy 12.06.22 EGD irregular Zline 37cm, Pluknett?s +; small hiatal hernia; duodenitis. ? Colonoscopy diverticulosis. Contact 05.16.23 with concern for episode of diverticulitis. STAT CT scan and c.difficile stool test recommended ? CT abd/pel 05.16.23 s/p cholecystectomy; small hypodense foci within liver; moderate/large stool volume; sigmoid diverticulosis without diverticulitis; left adnexal cyst. OV 05.23.23 she has started taking MiraLAX for constipation. Reports prior to this she was having a BM with incomplete evacuation. Continues with famotidine BID and addressing dietary changes. OV 5.28.24 pt states that she has no GI symptoms of concern at this time. Pt continues with mineral oil, psyllium husk, miralax, baking soda, and Famotidine. ROS Const Constitutional: Positive for headache(s); No fatigue, fever(s) or weight change ENT ENT: Positive for headache(s); No difficulty swallowing Gastro GI: Positive for abdominal pain, bloating, constipation, diarrhea, heartburn, excessive flatus and nausea/dyspepsia; No belching, change in bowel habits, change in stool character, coffee ground emesis, cramping, difficulty swallowing, feeling full early, incontinent of stools, Vomiting blood/hematemesis, Blood in stool, loose stools, Black,tarry stools, pain with swallowing, vomiting or other Musc Musculoskeletal: Positive for joint pain, back pain, numbness, stiffness, tingling and Arthritis Skin Skin: No yellowing of the eye or itchy eyes Neuro Neurology: Positive for headache(s), numbness and tingling Psych Psychiatric: Positive for anxiety and No depression Endo Endocrine: No fatigue or weight change Aller/Imm Allergy/Immunologic: No itchy eyes Samir/Lymp Hematologic/Lymphatic: Positive for easy bruising; No easy bleeding Exam Const General: cooperative, healthy appearing and comfortable Nutritional Appearance: average body habitus Orientation: alert, awake and oriented x3 Assessment and Plan Assessment and Plan (1) Constipation: Status: Chronic Plan: 56 yr old female with diverticular disease, constipation now well controlled with mineral oil and psyllium husk, mild intermittent acid reflux for which she takes prn famotidine. We discussed possibility of EGD and colonoscopy (since last one was incomplete); she is helping her mother who currently has some health issues so she needs to hold off; will f/u 6 mos and reevaluate then. (2) Plunkett esophagus: Status: Chronic Plan: Will repeat her upper endoscopy for surveillance of her Plunkett's esophagus. (3) Diverticular disease: Status: Chronic Plan: She is not having any problems with diverticular disease as long as she continues to go to the bathroom on a daily basis with her current regimen. (4) GERD (gastroesophageal reflux disease): Status: Chronic Plan: She was discovered to have Plunkett's esophagus on her upper endoscopy along with a small hiatal hernia. We will send her medicine for reflux disease and repeat her upper endoscopy in approximately a year. I have examined the patient and the H&P has been reviewed. There are no clinical changes since date of exam.
[2023-12-04 12:11] VITALS: BP 130/74; BP 145/87; PULSE 65; RESP 18; TEMP 36.8; O2SAT 99
[2023-12-04 12:15] VITALS: BP 120/83; BP 145/87; PULSE 60; RESP 18; O2SAT 100
--- NOTE | 2023-12-04 12:15 | OP.CCLET_ITS ---
12/04/2023 Brissa Davies [place] [id number] [address] Re : Upper GI endoscopy procedure for Melva Rhoades Dear Dr. Davies This procedure was performed on Monday, December 04, 2023. My impressions and recommendations are as follows: Impressions : - Esophageal mucosal changes secondary to established short-segment Plunkett's disease. Biopsied. - No gross lesions in the stomach. Bile acid in the stomach. - Normal first portion of the duodenum. Recommendations : - Discharge patient to home. - Resume previous diet. - Continue present medications. My findings are described in the full procedure note, which is enclosed. If I can be of further assistance, please feel free to contact me at . Sincerely, Gabino Friedman, 12/04/2023 12:14:37 PM This report has been signed electronically.
--- NOTE | 2023-12-04 12:15 | OP.EGD_ITS ---
Patient Name: Melva Rhoades Procedure Date: 12/04/2023 11:54 AM Date of : 1965 Age: 57 Procedure: Upper GI endoscopy Indications: Follow-up of Plunkett's esophagus Providers: Gabino Friedman DO Referring MD: Brissa Davies Medicines: Monitored Anesthesia Care Patient Profile: This is a 57 year old female. Refer to note in patient chart for documentation of history and physical. Patient has symptoms. Patient has symptoms of chronic heartburn. Complications: No immediate complications. Procedure: Pre-Anesthesia Assessment: - Prior to the procedure, a History and Physical was performed, and patient medications and allergies were reviewed. The patient is competent. The risks and benefits of the procedure and the sedation options and risks were discussed with the patient. All questions were answered and informed consent was obtained. Patient identification and proposed procedure were verified by the physician in the pre-procedure area. Mental Status Examination: alert and oriented. Respiratory Examination: clear to auscultation. CV Examination: normal. Prophylactic Antibiotics: The patient does not require prophylactic antibiotics. Prior Anticoagulants: The patient has taken no anticoagulant or antiplatelet agents. ASA Grade Assessment: II - A patient with mild systemic disease. After reviewing the risks and benefits, the patient was deemed in satisfactory condition to undergo the procedure. The anesthesia plan was to use monitored anesthesia care (MAC). Immediately prior to administration of medications, the patient was re-assessed for adequacy to receive sedatives. The heart rate, respiratory rate, oxygen saturations, blood pressure, adequacy of pulmonary ventilation, and response to care were monitored throughout the procedure. The physical status of the patient was re-assessed after the procedure. After obtaining informed consent, the endoscope was passed under direct vision. Throughout the procedure, the patient's blood pressure, pulse, and oxygen saturations were monitored continuously. The gastroscope was introduced through the mouth, and advanced to the second part of duodenum. The upper GI endoscopy was accomplished without difficulty. The patient tolerated the procedure well. Scope In: 12:04:23 PM Scope Out: 12:06:48 PM Total Procedure Duration Time 0 hours 2 minutes 25 seconds Findings: There were esophageal mucosal changes secondary to established short-segment Plunkett's disease present in the lower third of the esophagus. The maximum longitudinal extent of these mucosal changes was 2 cm in length. Mucosa was biopsied with a cold forceps for histology in a targeted manner at intervals of 1 cm in the lower third of the esophagus. One specimen bottle was sent to pathology. Verification of patient identification for the specimen was done. Estimated blood loss was minimal. No gross lesions were noted in the stomach. There was a lot of bile acid seen in the stomach. The first portion of the duodenum was normal. Impression: - Esophageal mucosal changes secondary to established short-segment Plunkett's disease. Biopsied. - No gross lesions in the stomach. Bile acid in the stomach. - Normal first portion of the duodenum. Recommendation: - Discharge patient to home. - Resume previous diet. - Continue present medications. Procedure Code(s): --- Professional --- 17609, Esophagogastroduodenoscopy, flexible, transoral; with biopsy, single or multiple CPT copyright 2021 [employer]. All rights reserved. The codes documented in this report are preliminary and upon organic section technical lead review may be revised to meet current compliance requirements. Gabino Friedman DO 12/04/2023 12:14:37 PM This report has been signed electronically. Number of Addenda: 0 Note Initiated On: 12/04/2023 11:54 AM
[2023-12-04 12:23] VITALS: BP 134/79; BP 145/87; PULSE 61; RESP 18; TEMP 36; O2SAT 100
[2023-12-04 12:41] VITALS: BP 145/87
== END 2023-12-04 12:47 | disposition home or self-care (01) ==
LOC: EN 10:21 → AC 10:24
PROVIDERS: PCP Family Medicine; Referring Provider Family Medicine; Visit Provider Internal Medicine Gastroenterology
PROC: 0DJ08ZZ Inspection of Upper Intestinal Tract, Via Natural or Artificial Opening Endoscopic (ICD-10-PCS; CPT 43235; principal; 2023-12-04 11:25)
DX: K21.00 Gastro-esophageal reflux disease with esophagitis, without bleeding (principal); K22.70 Barrett's esophagus without dysplasia; F41.9 Anxiety disorder, unspecified; I10 Essential (primary) hypertension; Z79.899 Other long term (current) drug therapy
CPT/HCPCS: 43239; 88305; 88312; J7120; J2405

== ENCOUNTER 2025-02-04 13:19 | Emergency (ER) | payer OTHER, SELFPAY ==
[2025-02-04 13:20] VITALS: BP 150/87; PULSE 79; RESP 16; TEMP 36.8; O2SAT 98; BMI 22.3
--- NOTE | 2025-02-04 14:23 | CT_ITS ---
PROCEDURE: ABDOMEN/PELVIS W IV CONT ONLY 02/04/2025 REASON FOR EXAM: LLQ PAIN AND TENDERNESS, HISTORY DIVERTICULITIS. History of HTN, hysterectomy, cholecystectomy and Plunkett's esophagus. TECHNIQUE: ABDOMEN/PELVIS W IV CONT ONLY Coronal and Sagittal reconstruction series were provided. CONTRAST: Isovue 300 VOLUME: 100 mL One or more dose reduction techniques were used (e.g., Automated exposure control, adjustment of the mA and/or kV according to patient size, use of iterative reconstruction technique. RADIATION DOSE SUMMARY: CTDlvol: 13.30, 8.80 mGy DLP: 404.40 mGycm FINDINGS: LUNG BASES: No basilar airspace consolidation or pleural effusion. Left lower lobe 3.5 mm subpleural nodule, which is unchanged. LIVER: Multiple small hypodense lesions, one of which has resolved since 03/29/2022, likely cysts. GALLBLADDER: Prior cholecystectomy. BILE DUCTS: No ductal dilation. PANCREAS: Unremarkable. SPLEEN: Unremarkable. ADRENAL GLANDS: Unremarkable. KIDNEYS: Unremarkable. The kidneys enhance symmetrically. No hydronephrosis or hydroureter. STOMACH AND BOWEL: No obstruction or perforation. Colonic diverticulosis. Segmental wall thickening in the distal descending, with adjacent fat stranding and ill-defined 2.2 x 2.8 cm fluid collection along the posterior wall. APPENDIX: Normal-appearing appendix. No CT evidence for appendicitis. RETRO/PERITONEUM: No free fluid. No free air. LYMPH NODES: No lymphadenopathy. PELVIC ORGANS: Unremarkable urinary bladder. Prior hysterectomy. VASCULATURE: No aortic aneurysm. ABDOMINAL WALL AND SOFT TISSUES: Tiny fat containing umbilical and indirect left inguinal hernias. BONES: No fracture or suspicious osseous abnormality. Moderate L5-S1 degenerative disc disease. CT/Abdomen/Pelvis W IV Cont ONLY IMPRESSION: Distal descending colon diverticulitis with ill-defined fluid collection along the posterior wall, concerning for developing diverticular abscess. No pneumoperitoneum. Reading Location: [id number]
[2025-02-04 14:39] LABS: Hematocrit 40.3 % (37-47); Hemoglobin 13.6 g/dL (12.0-15.0); Immature Granulocytes Count 0.050 X10^3/uL (0.0-0.0); Mean Corp Hgb Conc 33.7 g/dL (32-36); Mean Corpuscular Volume 86.3 fL (81-99); Mean Platelet Vol. 10.5 fl (6.2-12.0); NRBC Flagged by Analyzer 0 % (0-5); Platelet Count 209 K/mm3 (150-450); RBC Distribution Width CV 12.7 % (11.6-14.6); RBC Distribution Width SD 39.6 fl (35.1-43.9); Red Blood Count 4.67 M/mm3 (4.2-5.4); White Blood Count 11.0 K/mm3 (4.4-11.0)
[2025-02-04 15:19] VITALS: BP 131/78; PULSE 78; RESP 18; O2SAT 98
[2025-02-04 15:31] LABS: Anion Gap 13 (5-15); BUN 11 mg/dL (4-19); BUN/Creat Ratio 10.3 RATIO (10-20); Calcium,Total 10.6 mg/dL (7.6-11.0); Carbon Dioxide 23.0 mmol/L (21.0-32.0); Chloride 104 mmol/L (98-108); Estimated Creatinine Clearance 46.97 ml/min (50-250); Glucose 93 mg/dL (70-99); Potassium 3.5 mmol/L (3.3-5.1)
--- NOTE | 2025-02-04 15:53 | EX.ED.DYSGE1 ---
HPI <Dr. Eric Schaeffer MD - Last Filed: 02/06/25 13:16> History of Present Illness Chief Complaint: Abd Pain Detail of Chief Complaint: Left lower quadrant abdominal pain that started Monday Informant: patient Onset/Context/Timing Onset: Days Context: Sudden Onset Timing: Continuous Quality: Pain Location: Left lower quadrant Current Severity: Mild Maximum Severity: Moderate Worsened by: Palpation and movement Relieved by: Nothing Associated Symptoms Associated Symptoms: Constipation Narrative Narrative: Patient is a 59-year-old female with history of diverticulitis x 2. She has history of constipation. She is on a bowel regimen that Dr. Friedman made for her. She apparently had cheese on Monday which caused her to be constipated. She states she has had 2 flares of the diverticulosis when she has become constipated. She complains of pain left lower quadrant. She denies fever. She had some chills. She denies dysuria, frequency, urgency or hematuria. She denies vaginal bleeding. She denies back pain. She denies trauma. Denies rash. Prior similar symptoms: Yes Recent Illness/Hospitalization: No PFSH <Dr. Eric Schaeffer MD - Last Filed: 02/06/25 13:16> [facility] Medical History Tendonitis Wears glasses Post-menopausal History of Clostridium difficile infection Cancer Anxiety Gastric reflux Chronic cough History of stress test History of echocardiogram Clostridium difficile infection Liver hemangioma Rheumatoid arthritis GERD (gastroesophageal reflux disease) Constipation Acute diverticulitis Non-smoker Hypertension Migraines Home Medications ?Medication ?Instructions ?Recorded ?Last Taken ?Type hydroxychloroquine 200 mg tablet 200 mg PO DAILYCM 12/01/19 Unknown History lisinopril 10 mg tablet 20 mg PO DAILY 12/02/22 12/06/22 History alprazolam 0.5 mg tablet 0.5 mg PO DAILY PRN Anxiety 11/21/23 Unknown History estradiol 0.01% (0.1 mg/gram) 1 appful vaginal .2X/WEEK 11/29/23 Unknown History vaginal cream vonoprazan 20 mg tablet (Voquezna) 20 mg PO QDAY #30 tabs 08/26/24 Unknown Rx famotidine 40 mg tablet 40 mg PO QDAY #30 TABLETS 10/15/24 Unknown Rx amoxicillin 875 mg-potassium 875 mg PO Q12H #20 TABLETS 02/04/25 Unknown Rx clavulanate 125 mg tablet ondansetron 4 mg disintegrating 4 mg PO Q6H PRN nausea and 02/04/25 Unknown Rx tablet vomiting #14 tabs Allergy/AdvReac Type Severity Reaction Status Date / Time shellfish derived Allergy Hives Verified 02/04/25 13:21 codeine AdvReac Other Verified 02/04/25 13:21 Penicillins AdvReac Nausea/Vom/ Verified 02/04/25 13:21 Diarrhea Family History Mother Hypertension Depression Skin cancer Surgical History History of cardiac catheterization History of partial hysterectomy History of cholecystectomy Social History Smoking Status: Former smoker ROS <Dr. Eric Schaeffer MD - Last Filed: 02/06/25 13:16> ROS ED Constitutional Constitutional ED: Reports chills; Denies fever(s) or subjective Cardiovascular Cardiovascular: Denies chest pain or palpitations Respiratory/Chest Respiratory/Chest: Denies cough, dyspnea or dyspnea on exertion Gastrointestinal Gastrointestinal: Reports abdominal pain; Denies constipation, diarrhea, melena, nausea or vomiting Genitourinary Genitourinary ED: Denies dysuria, hematuria or urinary frequency Musculoskeletal Musculoskeletal: Denies arthralgias, back pain, myalgias or neck pain Integumentary Denies rash Hematologic/Lymphatic Hematologic/Lymphatic: Reports systems reviewed and no addt'l complaints, except as documented EXAM <Dr. Eric Schaeffer MD - Last Filed: 02/06/25 13:16> Physical Exam Const Vital Signs: 02/04/25 13:20 02/04/25 15:19 Temperature 98.3 F Temperature Source Oral Pulse Rate 79 78 Respiratory Rate 16 18 Blood Pressure 150/87 H 131/78 H Blood Pressure Mean 108 95 Pulse Ox 98 98 Oxygen Delivery Method Room Air Room Air Positive well nourished and well developed General Appearance ED: well developed and NAD; Negative for pallor HEENT Reports moist mucous membranes HEENT Narrative: Head is atraumatic normocephalic. Ears normal. Eyes PERRL and EOMs intact bilaterally General Eye ED: Negative for pale conjunctiva or scleral icterus Neck no lymphadenopathy, supple and no JVD Resp normal respiratory effort and clear to auscultation bilaterally Cardio regular rate, regular rhythm, S1 normal heart sound, S2 normal heart sound and no murmurs GI normal to inspection, nondistended, normoactive bowel sounds, non-distended and no masses; Negative for non-tender or hepatosplenomegaly Palpation: soft, tender LLQ and guarding LLQ; Negative for rebound tenderness present Back/Spine no CVA tenderness Extremity normal to inspection Neuro oriented x3 and CN's II-XII intact bilaterally Sensorium / Orientation: alert Psych mental status grossly normal Skin no rashes or lesions noted, no wounds and skin turgor normal General Skin Exam: Negative for jaundice or pallor <Dr. Jan Moreno MD - Last Filed: 02/04/25 16:42> Physical Exam Const Vital Signs: 02/04/25 13:20 02/04/25 15:19 Temperature 98.3 F Temperature Source Oral Pulse Rate 79 78 Respiratory Rate 16 18 Blood Pressure 150/87 H 131/78 H Blood Pressure Mean 108 95 Pulse Ox 98 98 Oxygen Delivery Method Room Air Room Air MDM <Dr. Eric Schaeffer MD - Last Filed: 02/06/25 13:16> MDM MDM Narrative Medical decision making narrative: Differential diagnosis is abdominal pain unknown etiology, obstipation, diverticulitis. Will obtain CBC, electrolyte panel and CT of the abdomen pelvis IV contrast. Lab Data Lab results narrative: White count is unremarkable. There is a slight shift. Electrolyte panel is normal. Labs: Laboratory Results - last 24 hr 02/04/25 13:42 WBC 11.0 RBC 4.67 Hgb 13.6 Hct 40.3 MCV 86.3 MCH 29.1 MCHC 33.7 RDW Std Deviation 39.6 RDW Coeff of Veronica 12.7 Plt Count 209 MPV 10.5 Immature Gran % (Auto) 0.500 Neut % (Auto) 75.7 H Lymph % (Auto) 13.7 L Daniels % (Auto) 8.5 Eos % (Auto) 1.1 Baso % (Auto) 0.5 Absolute Neuts (auto) 8.3 H Absolute Lymphs (auto) 1.51 Nucleated RBC % 0 Sodium 140 Potassium 3.5 Chloride 104 Carbon Dioxide 23.0 Anion Gap 13 BUN 11 Creatinine 1.02 Estim Creat Clear Calc 46.97 L Est GFR (MDRD) Non-Af 63 BUN/Creatinine Ratio 10.3 Glucose 93 Calcium 10.6 Radiography Diagnostic Testing: Clinical Impression(s) from Imaging Studies Abdomen/Pelvis CT 02/04/25 14:23 IMPRESSION: Distal descending colon diverticulitis with ill-defined fluid collection along the posterior wall, concerning for developing diverticular abscess. No pneumoperitoneum. Reading Location: [facility] Management Discussion w/another healthcare provider: Hims Coder (Will speak with general surgeon on-call Dr. Tavares since she does not have a general surgeon.) <Dr. Jan Moreno MD - Last Filed: 02/04/25 16:42> MDM MDM Narrative Medical decision making narrative: Differential diagnosis is abdominal pain unknown etiology, obstipation, diverticulitis. Will obtain CBC, electrolyte panel and CT of the abdomen pelvis IV contrast. Patient checked out to me. I spoke to Dr. Shaun Rivera of general surgery. We went over the patient's CAT scan. Given the patient's clinical status, her exam and her test results he is also current with her being discharged home. With close outpatient follow-up. I discussed this with the patient and her at bedside. They are comfortable with the plan and she would prefer to go home. She will be started on Augmentin 875 twice daily for 10 days first dose given in emergency department. She was also given Zofran as needed for nausea at home. She will make an outpatient appointment. I instructed her to return if she is feeling worse. Lab Data Labs: Laboratory Results - last 24 hr 02/04/25 13:42 WBC 11.0 RBC 4.67 Hgb 13.6 Hct 40.3 MCV 86.3 MCH 29.1 MCHC 33.7 RDW Std Deviation 39.6 RDW Coeff of Veronica 12.7 Plt Count 209 MPV 10.5 Immature Gran % (Auto) 0.500 Neut % (Auto) 75.7 H Lymph % (Auto) 13.7 L Daniels % (Auto) 8.5 Eos % (Auto) 1.1 Baso % (Auto) 0.5 Absolute Neuts (auto) 8.3 H Absolute Lymphs (auto) 1.51 Nucleated RBC % 0 Sodium 140 Potassium 3.5 Chloride 104 Carbon Dioxide 23.0 Anion Gap 13 BUN 11 Creatinine 1.02 Estim Creat Clear Calc 46.97 L Est GFR (MDRD) Non-Af 63 BUN/Creatinine Ratio 10.3 Glucose 93 Calcium 10.6 Radiography Diagnostic Testing: Clinical Impression(s) from Imaging Studies Abdomen/Pelvis CT 02/04/25 14:23 IMPRESSION: Distal descending colon diverticulitis with ill-defined fluid collection along the posterior wall, concerning for developing diverticular abscess. No pneumoperitoneum. Reading Location: [facility] Discharge Plan Triage Chief Complaint: Abd Pain ED Provider: Eric Schaeffer Dx/Rx/DC Orders Clinical Impression: Acute diverticulitis, Constipation, Phlegmon, Elevated blood-pressure reading without diagnosis of hypertension Instructions: ED Diverticulitis Prescriptions: New amoxicillin-pot clavulanate 875-125 mg tablet 875 mg PO Q12H Qty: 20 0RF ondansetron 4 mg tablet,disintegrating 4 mg PO Q6H PRN (Reason: nausea and vomiting) Qty: 14 0RF No Action hydroxychloroquine 200 MG tablet 200 mg PO DAILYCM alprazolam 0.5 mg tablet 0.5 mg PO DAILY PRN (Reason: Anxiety) lisinopril 10 mg tablet 20 mg PO DAILY Patient Comments: TAKE 1 TABLET BY MOUTH TWICE DAILY estradiol 0.01 % (0.1 mg/gram) cream 1 appful vaginal .2X/WEEK Voquezna 20 mg tablet 20 mg PO QDAY Qty: 30 2RF famotidine 40 mg tablet 40 mg PO QDAY Qty: 30 3RF Primary Care Provider: Brissa Davies Referrals: Brissa Davies MD [Primary Care Provider] - Sagar Rivera MD [Med Staff - Active Staff] - 3-5 Days Activity Restrictions/Additional Instructions: The antibiotic Augmentin twice a day till gone. Motrin and Tylenol for pain. Call and follow-up with a general surgeon Shaun Rivera with [place] for further evaluation. If you are feeling worse increasing pain, fever, intractable vomiting just return to the emergency department. Zofran as needed for nausea. You may swallow or let dissolve under your tongue. Print Language: Mongolian Disposition Disposition: Home, Self Care Discharge Date/Time: 02/04/25 16:46
[2025-02-04 16:42] VITALS: BP 145/86; PULSE 80; RESP 18; TEMP 36.7; O2SAT 100
== END 2025-02-04 16:46 | disposition home or self-care (01) ==
PROVIDERS: Emergency Provider Emergency Medicine; PCP Family Medicine; Visit Provider Emergency Medicine
DX: K57.32 Diverticulitis of large intestine without perforation or abscess without bleeding (principal); Z87.891 Personal history of nicotine dependence; R10.32 Left lower quadrant pain; I10 Essential (primary) hypertension; Z79.899 Other long term (current) drug therapy; K21.9 Gastro-esophageal reflux disease without esophagitis; Z90.49 Acquired absence of other specified parts of digestive tract; Z90.710 Acquired absence of both cervix and uterus; K59.00 Constipation, unspecified; L02.91 Cutaneous abscess, unspecified
CPT/HCPCS: 74177; 80048; 85025; 96374; 99283; Q9967; J2405

== ENCOUNTER → 2025-03-19 | Outpatient (CLI) | payer OTHER, SELFPAY ==
--- NOTE | 2025-03-19 17:20 | CT_ITS ---
PROCEDURE: ABDOMEN/PELVIS WITH CONTRAST 03/19/2025 REASON FOR EXAM: LLQ ABD PAIN Nausea TECHNIQUE: Procedure Code: [id number] Modality: CT Procedure: ABDOMEN/PELVIS WITH CONTRAST Coronal and Sagittal reconstruction series were provided. CONTRAST: Isovue 370 VOLUME: 100 mL One or more dose reduction techniques were used (e.g., Automated exposure control, adjustment of the mA and/or kV according to patient size, use of iterative reconstruction technique. RADIATION DOSE SUMMARY: CTDlvol: 16.96 mGy DLP: 320.93 mGycm COMPARISON: 02/04/2025 FINDINGS: Lung bases: Clear Liver: Liver is unremarkable aside from scattered simple cysts. Gallbladder: Likely surgically absent Spleen: Normal size. Pancreas: Normal size without evidence of mass surrounding inflammation or ductal dilation. Adrenals: Unremarkable Kidneys: No obstructive uropathy or suspicious solid renal lesion Bladder: Distends normally Reproductive Organs: Surgically absent Bowel: No evidence of obstruction or acute inflammation. Retained stool noted in the colon scattered colonic diverticula noted without CT evidence of acute diverticulitis. Previously noted acute sigmoid diverticulitis has cleared Appendix: Not visualized Lymph nodes: No suspicious mesenteric or retroperitoneal adenopathy Vasculature: Unremarkable Peritoneum / Retroperitoneum: No free fluid or air Bones: Mild degenerative changes CT/Abdomen/Pelvis WITH Contrast IMPRESSION: No suspicious solid organ abnormality, simple hepatic cysts, no specific follow -up needed Retained stool throughout the colon with scattered diverticula, no CT evidence of acute diverticulitis, previously noted acute diverticulitis in January has resolved No free intraperitoneal fluid, air, or suspicious adenopathy Reading Location: [id number]
== END | disposition home or self-care (01) ==
LOC: CT 17:19
PROVIDERS: PCP Family Medicine; Referring Provider Surgery; Visit Provider Surgery
DX: K57.92 Diverticulitis of intestine, part unspecified, without perforation or abscess without bleeding (principal)
CPT/HCPCS: 74177; Q9967

== ENCOUNTER → 2025-03-20 | Outpatient (CLI) | payer OTHER, SELFPAY | END | disposition home or self-care (01) | LOC: LABSPEC 08:02 | PROVIDERS: PCP Family Medicine; Referring Provider Surgery; Visit Provider Surgery | DX: K57.92 Diverticulitis of intestine, part unspecified, without perforation or abscess without bleeding (principal) | CPT/HCPCS: 87493 ==